=== PATIENT | female | born 1935 | race Caucasian/White ===

== ENCOUNTER → 2016-03-23 | Outpatient (REF) | payer MEDICARE, OTHER, MEDICAID ==
[~2016-03-23] MED LIST: /ESCI10TA OR; /PANT40TA PO; /QUET10TA PO; AMBI5TAB OR; ASPIRIN PO; CARD120T6 PO; EFFEXOR PO; FLON0.05; LIDO5DIS EX; METO10TA2 PO; MYCOSTATIN POWDER TOP; NEUR300C PO; PREM0.9T PO; REME45TA OR; SOTA120T PO; XANA1TAB2 PO; ZETI10TA PO; ZOCO80TA PO; amaryl PO; pradaxa PO
[2016-03-23 12:41] LABS: ANION GAP 9 MEQ/L (8-16); BLOOD UREA NITROGEN 16 MG/DL (7-18); CALCIUM LEVEL 9.5 MG/DL (8.8-10.2); CARBON DIOXIDE LEVEL 30 MEQ/L (21-32); CHLORIDE LEVEL 105 MEQ/L (98-107); CREATININE FOR GFR 0.74 MG/DL (0.55-1.02); GLOMERULAR FILTRATION RATE > 60.0 (>39); GLUCOSE, FASTING 151 MG/DL (83-110); POTASSIUM SERUM 3.9 MEQ/L (3.5-5.1); SODIUM LEVEL 144 MEQ/L (136-145)
== END ==
PROVIDERS: ATTEND Family Medicine
DX: E11.9 Type 2 diabetes mellitus without complications (principal); Z79.899 Other long term (current) drug therapy

== ENCOUNTER → 2016-04-01 | Outpatient (REF) ==
--- NOTE | 2016-04-01 13:09 | REP ---
CHEST, TWO AP VIEWS: COMPARISON: 10/08/2010. There are no focal infiltrates. There are no pleural effusions. The lung isidro are otherwise clear and unchanged. Cardiac size is upper normal. The pool, mediastinum, and bony thorax are unremarkable for positioning. IMPRESSION: There are no acute cardiopulmonary findings. Signed by Kevin Patel MD 04/01/2016 05:23 P
[2016-04-01 13:13] LABS: BASO % 0.2 % (0.0-1.0); EOS % 0.6 % (0.0-3.0); LARGE UNSTAINED CELL # 0.2 K/mm3 (0.0-0.4); LARGE UNSTAINED CELL % 1.5 % (0.0-4.0); LYMPH # 1.4 K/mm3 (1.5-4.5); LYMPH % 15.1 % (24.0-44.0); MEAN CORPUSCULAR HEMOGLOBIN 30.7 pg (27.0-33.0); MEAN CORPUSCULAR VOLUME 93.1 fl (80.0-96.0); MONO # 0.7 K/mm3 (0.0-0.8); MONO % 7.6 % (0.0-5.0); NEUTROPHILS % 74.9 % (36.0-66.0); PLATELET COUNT, AUTOMATED 222 k/mm3 (150-450); RED CELL DISTRIBUTION WIDTH 12.5 % (11.5-14.5); WHITE BLOOD COUNT 9.4 K/mm3 (4.0-10.0)
[2016-04-01 13:29] LABS: ANION GAP 7 MEQ/L (8-16); BLOOD UREA NITROGEN 12 MG/DL (7-18); CALCIUM LEVEL 9.2 MG/DL (8.8-10.2); CARBON DIOXIDE LEVEL 31 MEQ/L (21-32); CHLORIDE LEVEL 106 MEQ/L (98-107); CREATININE FOR GFR 0.66 MG/DL (0.55-1.02); GLOMERULAR FILTRATION RATE > 60.0 (>39); GLUCOSE, FASTING 127 MG/DL (83-110); POTASSIUM SERUM 3.7 MEQ/L (3.5-5.1); SODIUM LEVEL 144 MEQ/L (136-145)
== END ==
PROVIDERS: ATTEND Family Medicine
DX: R06.02 Shortness of breath (principal)

== ENCOUNTER → 2016-04-20 | Outpatient (REF) | payer MEDICARE, OTHER, MEDICAID ==
[2016-04-20 11:22] LABS: MEAN CORPUSCULAR HEMOGLOBIN 30.1 pg (27.0-33.0); MEAN CORPUSCULAR HGB CONC 32.3 g/dl (32.0-36.5); MEAN CORPUSCULAR VOLUME 93.2 fl (80.0-96.0); RED CELL DISTRIBUTION WIDTH 12.8 % (11.5-14.5)
[2016-04-20 12:05] LABS: ANION GAP 9 MEQ/L (8-16); BLOOD UREA NITROGEN 15 MG/DL (7-18); CALCIUM LEVEL 9.1 MG/DL (8.8-10.2); CARBON DIOXIDE LEVEL 30 MEQ/L (21-32); CHLORIDE LEVEL 105 MEQ/L (98-107); CHOLESTEROL LEVEL 153 MG/DL (<200); CREATININE FOR GFR 0.72 MG/DL (0.55-1.02); GLOMERULAR FILTRATION RATE > 60.0 (>39); GLUCOSE, FASTING 127 MG/DL (83-110); POTASSIUM SERUM 4.2 MEQ/L (3.5-5.1); SODIUM LEVEL 144 MEQ/L (136-145); TRIGLYCERIDES LEVEL 86 MG/DL (<150)
== END ==
PROVIDERS: ATTEND Family Medicine
DX: E11.9 Type 2 diabetes mellitus without complications (principal); Z79.899 Other long term (current) drug therapy

== ENCOUNTER → 2016-05-14 | Outpatient (CLI) | payer MEDICARE, OTHER, MEDICAID | LOC: M LAB 18:55 | PROVIDERS: ATTEND Family Medicine | DX: Z51.81 Encounter for therapeutic drug level monitoring (principal); Z79.899 Other long term (current) drug therapy; E11.9 Type 2 diabetes mellitus without complications; F41.9 Anxiety disorder, unspecified ==

== ENCOUNTER → 2016-05-25 | Outpatient (REF) | payer MEDICARE, OTHER, MEDICAID ==
[2016-05-25 14:03] LABS: ALT/SGPT 11 U/L (12-78); ANION GAP 8 MEQ/L (8-16); BLOOD UREA NITROGEN 13 MG/DL (7-18); CALCIUM LEVEL 9.1 MG/DL (8.8-10.2); CARBON DIOXIDE LEVEL 32 MEQ/L (21-32); CHLORIDE LEVEL 103 MEQ/L (98-107); CREATININE FOR GFR 0.67 MG/DL (0.55-1.02); GLOMERULAR FILTRATION RATE > 60.0 (>39); GLUCOSE, FASTING 142 MG/DL (83-110); POTASSIUM SERUM 4.2 MEQ/L (3.5-5.1); SODIUM LEVEL 143 MEQ/L (136-145)
== END ==
PROVIDERS: ATTEND Family Medicine
DX: E11.9 Type 2 diabetes mellitus without complications (principal); F41.9 Anxiety disorder, unspecified

== ENCOUNTER → 2016-06-22 | Outpatient (REF) | payer MEDICARE, MEDICAID, OTHER ==
[2016-06-22 10:46] LABS: ANION GAP 6 MEQ/L (8-16); BLOOD UREA NITROGEN 18 MG/DL (7-18); CALCIUM LEVEL 9.1 MG/DL (8.8-10.2); CARBON DIOXIDE LEVEL 32 MEQ/L (21-32); CHLORIDE LEVEL 107 MEQ/L (98-107); CREATININE FOR GFR 0.56 MG/DL (0.55-1.02); GLOMERULAR FILTRATION RATE > 60.0 (>39); GLUCOSE, FASTING 116 MG/DL (83-110); POTASSIUM SERUM 4.8 MEQ/L (3.5-5.1); SODIUM LEVEL 145 MEQ/L (136-145)
== END ==
PROVIDERS: ATTEND Family Medicine
DX: E11.9 Type 2 diabetes mellitus without complications (principal)

== ENCOUNTER → 2016-07-05 | Outpatient (CLI) | payer MEDICAID, MEDICARE ==
--- NOTE | 2016-07-05 14:00 | REPMRS ---
Patient History The patient states she has not had a clinical breast exam in over a year. Patient is postmenopausal. No known family history of cancer. Digital Mammo Screening Bilat: July 05, 2016 - Exam #: [id number] Bilateral CC and MLO view(s) were taken. Technologist: Teresa Hendrix, Technologist Prior study comparison: July 01, 2015, bilateral digital mammo screening bilat performed at [facility]. May 23, 2014, bilateral digital mammo screening bilat performed at [facility]. FINDINGS: There are scattered fibroglandular densities. There has been no change in the appearance of the mammogram from the prior studies. There is a mild amount of residual fibroglandular tissue which is fairly symmetric. There is no interval development of dominant mass, architectural distortion, or clustered microcalcification suggestive of malignancy. ASSESSMENT: BI-RADS/ACR category 1 mammogram. Negative. Recommendation Routine screening mammogram in 1 year (for women over age 40). This mammogram was interpreted with the aid of an FDA-approved computer-aided dectection system. Electronically Signed By: Kevin Cordon MD 07/05/16 [id number]
== END ==
LOC: M RAD 12:13
PROVIDERS: ATTEND Family Medicine
DX: Z12.31 Encounter for screening mammogram for malignant neoplasm of breast (principal); Z78.0 Asymptomatic menopausal state

== ENCOUNTER → 2016-07-20 | Outpatient (REF) | payer MEDICARE, MEDICAID, OTHER ==
[2016-07-20 10:15] LABS: MEAN CORPUSCULAR HEMOGLOBIN 30.2 pg (27.0-33.0); MEAN CORPUSCULAR HGB CONC 32.7 g/dl (32.0-36.5); MEAN CORPUSCULAR VOLUME 92.2 fl (80.0-96.0); WHITE BLOOD COUNT 5.2 K/mm3 (4.0-10.0)
[2016-07-20 10:48] LABS: ANION GAP 3 MEQ/L (8-16); BLOOD UREA NITROGEN 13 MG/DL (7-18); CALCIUM LEVEL 8.8 MG/DL (8.8-10.2); CARBON DIOXIDE LEVEL 35 MEQ/L (21-32); CHLORIDE LEVEL 106 MEQ/L (98-107); CHOLESTEROL LEVEL 122 MG/DL (<200); CREATININE FOR GFR 0.66 MG/DL (0.55-1.02); GLOMERULAR FILTRATION RATE > 60.0 (>39); GLUCOSE, FASTING 94 MG/DL (83-110); POTASSIUM SERUM 4.2 MEQ/L (3.5-5.1); SODIUM LEVEL 144 MEQ/L (136-145); TRIGLYCERIDES LEVEL 76 MG/DL (<150)
== END ==
PROVIDERS: ATTEND Family Medicine
DX: E11.9 Type 2 diabetes mellitus without complications (principal)

== ENCOUNTER → 2016-07-21 | Outpatient (CLI) | payer MEDICARE, MEDICAID, OTHER ==
--- NOTE | 2016-07-21 17:35 | REP ---
MRI BILATERAL HIPS: TECHNIQUE: Coronal T1, STIR through the pelvis, post arthrogram axial T1 fat sat, T2 fat sat, coronal T1 fat sat, T2 fat sat, sagittal T1 fat sat, axial oblique T1 fat sat bilateral hips. There is severe arthritic change at the right hip joint. There is severe chondromalacia with erosive deepening of acetabulum and erosive flattening of the femoral head. Subchondral marrow edema in seen on both sides of the joint with tiny subchondral cysts on both sides of the joint as well. Large spurs are seen. There is small joint effusion. Diffuse fraying is noted of the labrum. A small amount of the fluid along the greater trochanter is compatible with mild greater trochanteric tendinobursitis. No other soft-tissue signal abnormality is seen. Left hip demonstrates normal marrow signal with no bone marrow edema or occult fracture. There is no evidence of avascular necrosis. There is a tear of the anterior superior labrum. There is no paralabral cyst and there is no joint effusion. Surrounding soft tissue structures appear unremarkable with no abnormal signal. IMPRESSION: Severe degenerative joint disease right hip joint with erosive changes as discussed in detail above. Diffuse fraying of the labrum. Mild right greater trochanteric tendinobursitis. Left hip demonstrates a tear of the anterior superior aspect of the labrum. Signed by Kevin Cordon MD 07/22/2016 07:56 P
== END ==
LOC: M RAD 13:45
PROVIDERS: ATTEND Nurse Practitioner Adult Health
DX: M25.551 Pain in right hip (principal); M25.552 Pain in left hip; M46.1 Sacroiliitis, not elsewhere classified; M43.16 Spondylolisthesis, lumbar region; M47.816 Spondylosis without myelopathy or radiculopathy, lumbar region; M51.36 Other intervertebral disc degeneration, lumbar region; M51.27 Other intervertebral disc displacement, lumbosacral region; M48.06 Spinal stenosis, lumbar region

== ENCOUNTER → 2016-08-23 | Outpatient (REF) | payer MEDICARE, MEDICAID, OTHER ==
[2016-08-23 11:15] LABS: ALT/SGPT 19 U/L (12-78); ANION GAP 8 MEQ/L (8-16); BLOOD UREA NITROGEN 11 MG/DL (7-18); CALCIUM LEVEL 9.4 MG/DL (8.8-10.2); CARBON DIOXIDE LEVEL 33 MEQ/L (21-32); CHLORIDE LEVEL 104 MEQ/L (98-107); CREATININE FOR GFR 0.73 MG/DL (0.55-1.02); GLOMERULAR FILTRATION RATE > 60.0 (>39); GLUCOSE, FASTING 113 MG/DL (83-110); POTASSIUM SERUM 3.9 MEQ/L (3.5-5.1); SODIUM LEVEL 145 MEQ/L (136-145)
== END ==
PROVIDERS: ATTEND Family Medicine
DX: E11.9 Type 2 diabetes mellitus without complications (principal)

== ENCOUNTER → 2016-08-29 | Outpatient (REF) | payer MEDICARE, MEDICAID, OTHER | PROVIDERS: ATTEND Family Medicine | DX: R35.0 Frequency of micturition (principal) ==

== ENCOUNTER → 2016-09-21 | Outpatient (REF) | payer MEDICARE, MEDICAID, OTHER ==
[~2016-09-21] MED LIST changes: +ALPR0.25 PO; +BENPAD TOP; +BIMA01SOL OU; +DULC10SU2 PR; +FLEEENE4 PR; +GABA600T PO; +LASI20TA PO; +MELA1CAP PO; +MOM30SS PO; +MULT1TAB10 PO; +OMEP20CA3 PO; +POTA10TA16 PO; +PRAD150C PO; +RANI150T PO; +REFR0.5D8 OU; +REGL5TAB2 PO; +TYLE325T5 PO; +XANA0.5T PO
[2016-09-21 12:03] LABS: ANION GAP 6 MEQ/L (8-16); BLOOD UREA NITROGEN 16 MG/DL (7-18); CARBON DIOXIDE LEVEL 30 MEQ/L (21-32); CHLORIDE LEVEL 105 MEQ/L (98-107); CREATININE FOR GFR 0.66 MG/DL (0.55-1.02); GLOMERULAR FILTRATION RATE > 60.0 (>39); GLUCOSE, FASTING 128 MG/DL (83-110); POTASSIUM SERUM 3.9 MEQ/L (3.5-5.1); SODIUM LEVEL 141 MEQ/L (136-145)
== END ==
PROVIDERS: ATTEND Family Medicine
DX: E11.9 Type 2 diabetes mellitus without complications (principal)

== ENCOUNTER → 2016-10-19 | Outpatient (REF) | payer MEDICARE, MEDICAID, OTHER ==
[2016-10-19 10:23] LABS: MEAN CORPUSCULAR HEMOGLOBIN 30.2 pg (27.0-33.0); MEAN CORPUSCULAR HGB CONC 32.8 g/dl (32.0-36.5); MEAN CORPUSCULAR VOLUME 92.1 fl (80.0-96.0); RED CELL DISTRIBUTION WIDTH 13.1 % (11.5-14.5); WHITE BLOOD COUNT 6.2 K/mm3 (4.0-10.0)
[2016-10-19 12:08] LABS: ANION GAP 6 MEQ/L (8-16); BLOOD UREA NITROGEN 14 MG/DL (7-18); CALCIUM LEVEL 9.2 MG/DL (8.8-10.2); CARBON DIOXIDE LEVEL 31 MEQ/L (21-32); CHLORIDE LEVEL 105 MEQ/L (98-107); CHOLESTEROL LEVEL 180 MG/DL (<200); CREATININE FOR GFR 0.68 MG/DL (0.55-1.02); GLOMERULAR FILTRATION RATE > 60.0 (>39); GLUCOSE, FASTING 96 MG/DL (83-110); POTASSIUM SERUM 3.9 MEQ/L (3.5-5.1); SODIUM LEVEL 142 MEQ/L (136-145); TRIGLYCERIDES LEVEL 71 MG/DL (<150)
== END ==
PROVIDERS: ATTEND Family Medicine
DX: E11.9 Type 2 diabetes mellitus without complications (principal)

== ENCOUNTER → 2016-11-25 | Outpatient (REF) | payer MEDICARE, MEDICAID, OTHER | PROVIDERS: ATTEND Family Medicine | DX: N39.0 Urinary tract infection, site not specified (principal) ==

== ENCOUNTER → 2017-01-03 | Outpatient (REF) | payer MEDICARE, MEDICAID, OTHER ==
[2017-01-03 12:17] LABS: BASO % 0.4 % (0.0-1.0); EOS # 0.2 10^3/uL (0.0-0.50); EOS % 2.7 % (0.0-3.0); IMMATURE GRANULOCYTE % 0.4 % (0-0); LYMPH # 1.3 10^3/uL (1.5-4.5); LYMPH % 23.8 % (24.0-44.0); MEAN CORPUSCULAR HEMOGLOBIN 29.7 pg (27.0-33.0); MEAN CORPUSCULAR HGB CONC 31.5 g/dl (32.0-36.5); MEAN CORPUSCULAR VOLUME 94.2 fl (80.0-96.0); MONO # 0.5 10^3/uL (0.0-0.8); MONO % 9.8 % (0.0-5.0); NEUTROPHILS # 3.5 10^3/uL (1.8-7.7); NEUTROPHILS % 62.9 % (36.0-66.0); PLATELET COUNT, AUTOMATED 273 10^3/uL (150-450); RED CELL DISTRIBUTION WIDTH 13.2 % (11.5-14.5); WHITE BLOOD COUNT 5.5 10^3/uL (4.0-10.0)
--- NOTE | 2017-01-03 12:17 | REP ---
PA and lateral chest: Comparison 10/08/2010. There is chronic elevation of the right hemidiaphragm, likely eventration, unchanged. Lung isidro are clear. Cardiac size is upper normal, unchanged. The pool and mediastinum are unremarkable. There is bilateral shoulder osteoarthritis, unchanged. There is demineralization and multilevel degenerative disc disease throughout the thoracic spine, unchanged. Impression: Essentially negative PA and lateral chest except for bilateral shoulder osteoarthritis and degenerative disc disease throughout the thoracic spine. These findings are unchanged. Signed by Kevin Patel MD 01/03/2017 12:08 P
[2017-01-03 12:46] LABS: ALBUMIN 3.6 GM/DL (3.2-5.2); ALBUMIN/GLOBULIN RATIO 1.03 (1.00-1.93); ALKALINE PHOSPHATASE 123 U/L (45-117); ALT/SGPT 14 U/L (12-78); ANION GAP 7 MEQ/L (8-16); AST/SGOT 12 U/L (15-37); BILIRUBIN,TOTAL 0.6 MG/DL (0.2-1.0); BLOOD UREA NITROGEN 13 MG/DL (7-18); CALCIUM LEVEL 9.1 MG/DL (8.8-10.2); CARBON DIOXIDE LEVEL 31 MEQ/L (21-32); CHLORIDE LEVEL 103 MEQ/L (98-107); CREATININE FOR GFR 0.67 MG/DL (0.55-1.02); GLOMERULAR FILTRATION RATE > 60.0 (>39); GLUCOSE, FASTING 130 MG/DL (83-110); SODIUM LEVEL 141 MEQ/L (136-145); TOTAL PROTEIN 7.1 GM/DL (6.4-8.2)
== END ==
PROVIDERS: ATTEND Family Medicine
DX: Z01.818 Encounter for other preprocedural examination (principal); M19.011 Primary osteoarthritis, right shoulder; M19.012 Primary osteoarthritis, left shoulder; M51.34 Other intervertebral disc degeneration, thoracic region

== ENCOUNTER → 2017-01-04 | Outpatient (REF) | payer MEDICARE, MEDICAID, OTHER ==
[2017-01-04 10:38] LABS: INR 1.38
== END ==
PROVIDERS: ATTEND Family Medicine
DX: Z01.812 Encounter for preprocedural laboratory examination (principal); Z79.899 Other long term (current) drug therapy

== ENCOUNTER → 2017-01-10 | Outpatient (CLI) | payer MEDICARE, OTHER, MEDICAID ==
--- NOTE | 2017-01-10 19:04 | ECGEPIP ---
Stationary ECG Study [facility] Test Date: 2017-01-10 Pat Name: JEANNETTE ORTEGA Department: Room: - Gender: F Fur Tailor: EDUARDO : 1935 Requested By: Dwight Kruger Order Number: [id number] Reading MD: Blayne Torres Measurements Intervals [place] Rate: 52 P: [place]: 0 QRS: 27 QRSD: 94 T: 18 QT: 449 QTc: 420 Interpretive Statements ATRIAL FIBRILLATION WITH SLOW VENTRICULAR RESPONSE Comparison tracing not on file Electronically Signed On 01-10-2017 19:04:09 EDT by Blayne Torres
--- NOTE | 2017-01-19 21:49 | HPE ---
DATE OF ADMISSION: 01/23/2017 ATTENDING PHYSICIAN: Dr. Vasquez CHIEF COMPLAINT: Right hip pain and stiffness. HISTORY: Patient is a 81-year-old female with progressively worsening right hip pain and stiffness. She has failed to improve with conservative measures. She continues to have pain with weightbearing activities and activities of daily living. She has consented for an elective right total hip arthroplasty with Dr. Vasquez. Medical optimization pending with Dr. Aguirre and Dr. Gurrola. CHRONIC MEDICAL CONDITIONS: 1. Atrial fibrillation. 2. Hypertension. 3. History of stroke. 4. Anxiety. 5. Depression. 6. Insomnia. PAST SURGICAL HISTORY: 1. Carpal tunnel release. 2. Total hysterectomy. CURRENT MEDICATIONS: - aspirin 81 mg daily - Lasix 20 mg daily - melatonin 1 mg every evening - Pradaxa 150 mg twice daily - Lexapro 10 mg daily - Xanax 0.5 mg daily at 1600 and 0.25 mg at 0800 and 2000 - Glucagon emergency kit 1 mg intramuscular (IM) as needed - gabapentin 300 mg three times daily and 600 mg at 2100 - Seroquel 100 mg daily - mirtazapine 30 mg daily - acetaminophen 650 mg suppositories daily - omeprazole 20 mg two capsules once daily - Flonase 50 mcg two sprays daily - diltiazem 120 mg twice daily - milk of magnesia - Dulcolax 10 mg suppository - Zantac 150 mg daily - Refresh Tears - Lumigan drops one drop in each eye once daily - daily multivitamin - Reglan 5 mg every evening ALLERGIES: PENICILLIN, SULFA DRUGS. REVIEW OF SYSTEMS: Patient denies fevers, chills, nausea, vomiting, or diarrhea. She denies chest pain, shortness of breath, headaches, or cough. She denies any abdominal pain. She does continue to have right hip pain with weightbearing activities and activities of daily living. PHYSICAL EXAMINATION: Well-nourished, well-developed female in no apparent distress. VITAL SIGNS: Height 65 inches, weight 173 pounds, blood pressure 116/64, temperature 99, heart rate 76, respirations 16. HEAD: Normocephalic. HEART: Irregularly irregular rhythm. LUNGS: Clear to auscultation bilaterally. ABDOMEN: Soft. Nontender to palpation. Right hip revealed no gross abnormalities. Skin is intact. She does have significant decrease in motion but strength overall seems normal. Her calf is soft, nontender to palpation with no palpable cords noted. Distally she is neurovascularly intact. LABORATORY DATA: EKG: Atrial fibrillation with slow ventricular response. Chest x-ray: Essential negative posterior-anterior (PA) and lateral chest except for bilateral shoulder osteoarthritis and degenerative disc disease throughout the thoracic spine. Prothrombin time elevated at 17.3, INR 1.38. Glucose elevated at 130, BUN 13, creatinine 0.67, glomerular filtration rate greater than 60, sodium 141, potassium 4.0, chloride 103, carbon dioxide 31, anion gap decreased at 7, calcium 9.1. AST decreased at 12, ALT 13, alkaline phosphatase elevated at 123, total bilirubin 0.6, total protein 7.1, albumin 3.6, albumin/globulin ratio 1.03. WBC 5.5, hemoglobin 12.3, hematocrit 39, RBC 4.14, platelets 273, erythrocyte sedimentation rate 38. Urinalysis positive for 1+ leukocyte esterase and elevated WBC. There is also 2+ bacteria. Urine culture shows Escherichia (E) coli. Nasal and sinus culture reveal heavy growth of Staphylococcus aureus. IMPRESSION/PLAN: 1. Right hip degenerative arthritis with x-rays notable for end-stage degenerative changes. Patient has consented for an elective right total hip arthroplasty with Dr. Vasquez. Medical optimization from Dr. Aguirre and Dr. Gurrola pending and was not available for review today. 2. Urinary tract infection, treated appropriately by her primary primary care sales representative with Macrobid. 3. Nasal and sinus culture positive for heavy growth of Staphylococcus aureus, treated appropriately b her primary primary care sales representative with Bactroban and Hibiclens.
== END ==
LOC: M ADMPAT 10:20
PROVIDERS: ATTEND Orthopaedic Surgery
DX: Z01.818 Encounter for other preprocedural examination (principal); M16.11 Unilateral primary osteoarthritis, right hip; Z79.899 Other long term (current) drug therapy

== ENCOUNTER → 2017-01-24 | Outpatient (REF) | payer MEDICARE, OTHER, MEDICAID ==
[~2017-01-24] MED LIST changes: +COUM2.5T17 PO; +PERC5TAB12 PO
[2017-01-24 10:52] LABS: MEAN CORPUSCULAR HGB CONC 31.8 g/dl (32.0-36.5); MEAN CORPUSCULAR VOLUME 94.2 fl (80.0-96.0); PLATELET COUNT, AUTOMATED 227 10^3/uL (150-450); RED CELL DISTRIBUTION WIDTH 13.2 % (11.5-14.5); WHITE BLOOD COUNT 5.3 10^3/uL (4.0-10.0)
[2017-01-24 11:22] LABS: ANION GAP 4 MEQ/L (8-16); BLOOD UREA NITROGEN 15 MG/DL (7-18); CALCIUM LEVEL 9.4 MG/DL (8.8-10.2); CARBON DIOXIDE LEVEL 35 MEQ/L (21-32); CHLORIDE LEVEL 105 MEQ/L (98-107); CREATININE FOR GFR 0.64 MG/DL (0.55-1.02); GLOMERULAR FILTRATION RATE > 60.0 (>39); GLUCOSE, FASTING 113 MG/DL (83-110); POTASSIUM SERUM 4.4 MEQ/L (3.5-5.1); SODIUM LEVEL 144 MEQ/L (136-145)
== END ==
PROVIDERS: ATTEND Family Medicine
DX: E11.9 Type 2 diabetes mellitus without complications (principal)

== ENCOUNTER 2017-01-26 14:11 | Inpatient (IN) | payer MEDICARE, OTHER, MEDICAID ==
[~2017-01-26] VITALS: Ht 165.1 cm; Wt 78.5 kg
[~2017-01-26 14:11] MED LIST changes: -COUM2.5T17 PO; -PERC5TAB12 PO
[2017-01-26] MEDS ORDERED: VANCOMYCIN 1000 MG/20 ML VIAL (J3370) As Ordered ONE (14:24)
[2017-01-26] MEDS ORDERED: LR 1,000 ML IV SCH ×3 (14:30→19:45)
[2017-01-26] MEDS ORDERED: VANCOMYCIN HCL 1,000 MG, VIAL MATE ADAPTER 1 EACH in D5W 250 ML IV ONE (14:30)
[2017-01-26] MEDS ORDERED: MIDAZOLAM INJ 2 MG/2 ML VIAL (J2250) As Ordered ONE (17:26)
[2017-01-26] MEDS ORDERED: ePHEDrine SULFATE 25 MG/5 ML(5MG/ML) SYRINGE As Ordered ONE (17:26)
[2017-01-26] MEDS ORDERED: fentaNYL 100 MCG/2 ML INJECTION (J3010) As Ordered ONE (17:26)
[2017-01-26] MEDS ORDERED: PHENYLephrine HCL 500 MCG/5 ML (100MCG/ML) SYRINGE (J2370) As Ordered ONE (17:26)
[2017-01-26] MEDS ORDERED: PROPOFOL 200 MG/20 ML VIAL As Ordered ONE (17:27)
[2017-01-26] MEDS ORDERED: LIDOCAINE 2% INJ 100 MG/5 ML SDV (FOR ANES.) As Ordered ONE (17:27)
[2017-01-26] MEDS ORDERED: CLINDAMYCIN INJ 900MG/6ML VIAL As Ordered ONE (17:47)
[2017-01-26] MEDS ORDERED: EPINEPHrine INJ 1 MG/ML 1ML AMP As Ordered ONE ×2 (18:18→18:31)
[2017-01-26] MEDS ORDERED: TRANEXAMIC ACID 100 MG/ML 10ML VIAL As Ordered ONE (18:30)
[2017-01-26] MEDS ORDERED: MORPHINE 1MG/ML IN 0.9% NACL 100ML IV BAG As Ordered ONE (19:22)
[2017-01-26] MEDS ORDERED: NALOXONE INJ 0.4 MG/1 ML VIAL (J2310) IV PRN (19:45)
[2017-01-26] MEDS ORDERED: ONDANSETRON 4MG/2ML VIAL (J2405) IV PRN ×2 (19:45)
[2017-01-26] MEDS ORDERED: HYDROmorphone HCL 1 MG/ML SYRINGE (J1170) IV PRN (19:45)
[2017-01-26] MEDS ORDERED: fentaNYL 100 MCG/2 ML INJECTION (J3010) IV PRN (19:45)
[2017-01-26] MEDS ORDERED: ACETAMINOPHEN TAB 650MG DOSE (2X325MG) PO PRN (19:45)
[2017-01-26] MEDS ORDERED: NALBUPHINE HCL 10 MG/ML AMP (J2300) IV PRN (19:45)
[2017-01-26] MEDS ORDERED: MORPHINE 1MG/ML IN 0.9% NACL 100ML IV BAG IV PRN (19:45)
[2017-01-26] MEDS ORDERED: diphenhydrAMINE INJ 50MG/ML VIAL (J1200) IV PRN (19:45)
[2017-01-26] MEDS ORDERED: PERCOCET 5MG/325MG TAB PO PRN (19:45)
[2017-01-26] MEDS ORDERED: FLEET ENEMA PR PRN (19:45)
[2017-01-26] MEDS ORDERED: EPIDURAL/PCA KEYS XX PRN (19:45)
[2017-01-26 20:45] VITALS: BP 180/90
[2017-01-26] MEDS ORDERED: GABAPENTIN 300 MG CAP PO SCH (21:00)
[2017-01-26] MEDS ORDERED: LIDOCAINE 5% (LIDODERM) PATCH TD SCH (21:00)
[2017-01-26] MEDS ORDERED: raNITIdine SYRUP 150 MG/10 ML UDC PO SCH (21:00)
[2017-01-26] MEDS ORDERED: WARFARIN SOD 5 MG TAB PO ONE (21:00)
[2017-01-26] MEDS: **NOTE PATIENT COMMENT** MISC XX SCH (21:00)
[2017-01-26] MEDS: FLUTICASONE PROP 0.05% NASAL SPRAY 16 GM (FLONASE) SCH (21:00)
[2017-01-26 21:15] VITALS: BP 182/94
[2017-01-26] MEDS ORDERED: BISACODYL 10 MG SUPP PR PRN (21:15)
--- NOTE | 2017-01-26 21:39 | RO ---
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 PROCEDURE: Right total hip arthroplasty using a size 52 Gription sector cup with a size #5 cemented [place] standard offset stem with a +5 neck and a 32 mm ball, and a 32 mm neutral polyethylene liner. SURGEON: Dr. Dwight Vasquez BANQUET CAPTAIN: Dr. Brandon Garcia OTHER BANQUET CAPTAIN: Nina Garcia ANESTHESIA: Spinal. ESTIMATED BLOOD LOSS: 200 mL. COMPLICATIONS: None. SPECIMENS: Femoral head. DESCRIPTION OF PROCEDURE: Antibiotics were given intravenously preoperatively, then a successful spinal anesthetic was induced. A Srivastava catheter was then placed. Then, she was placed in a lateral decubitus position, right hip uppermost, Delfino hip positioner was utilized, down leg well padded, especially peroneal nerve, and the axillary roll was utilized. Right hip area was then carefully prepped and draped in the usual sterile fashion. Then, after appropriate time-out, a longitudinal incision was made for a direct lateral approach to the hip, then Bovie cautery was used to coagulate crossing vessels down to the tensor fascia. Very meticulous hemostasis was maintained throughout the surgery as she is a patient that does take Pradaxa on a regular basis. Tensor fascia was divided in line with the skin incision, and it was noteworthy when we palpated the greater trochanter, that there appeared to be a separate fragment in the soft tissues and the abductor muscles more posteriorly. On the x-ray, it is possible there may be an old avulsion injury or heterotopic bone in the abductors, but we did not have to dissect this out. We then made our standard split in the gluteus medius, the anterior one-third, posterior two-third junction, and carefully dissected down through the anterior hip capsule, carefully dissecting the tissues off the proximal femur as we externally rotated the hip and then dislocated anteriorly and placed the leg in the leg bag. Starter reamer was placed down the center of the piriformis fossa, followed by the canal finding reamer, then the lateralizing reamer. We then reamed up to a size #6 reamer. Femoral neck osteotomy performed using the template and then we broached up to a size #5. I did not want to push it more than that because of her relatively osteoporotic bone. And we elected, at this point, to do a cemented total hip replacement based on the bone quality and did not want to push the envelope in terms of possible fracture of the femur trying to put an uncemented stem in. At this point, then, we exposed the acetabulum, performed a labral excision 360 degrees. 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 Thus, I did not think we needed to do anything other than a standard acetabular cup. We began reaming with a 45 reamer and advanced up to a 51. The trial 52 fit nicely with good stability; thus I felt the 52 Gription cup would be best for her and thus this was implanted after copiously pulsatile lavage irrigating out the hip joint. We used the extramedullary alignment jig to set our version and abduction, then the central hole eliminator was placed. The real polyethylene was then placed as well and then we exposed the proximal femur and prepared for cementing. Mrs. Nina Garcia mixed the cement on the back table as Dr. Brandon Garcia and I prepared the femoral canal with a standard cement technique using a copious amount of pulsatile lavage irrigant solution. We placed the cement restrictor the appropriate distance, measured off the real stem. A size #4 was utilized. The centralizer was placed on the tip of the stem, and then I began irrigating again the femoral canal and then placed three epinephrine-soaked sponges down the canal with continuous suction irrigation and then pulled those sponges out, then dried with three dry sponges. Then, the cement was placed down the femoral canal, followed by the stem with the stem pusher and all excess cement was removed after we pressurized the cement with a cement director of rehabilitation. Excess cement was removed with the curettes and then we waited until the cement hardened. It is noteworthy prior to doing the cement technique, we did go back and do a trial reduction with a #5 broach. We used the standard offset stem and trialed first with a 1.5 neck, then the +5 neck and that fit the best. She had minimal telescoping with the +5 neck. She was very stable to flexion internal rotation and extension external rotation. There was no evidence of any instability, and the cup seemed to be in appropriate version and abduction. There was no impingement. That is how we elected to proceed with the #5 standard offset cemented stem prior to the cement technique. Once the cement had hardened, we dried the trunnion and placed the 32 head, +5 neck length onto the trunnion and then reduced the hip, and again she was very stable to flexion internal rotation and extension external rotation and had minimal soft tissue telescoping. We then placed tranexamic acid into the depths of the hip joint after copiously irrigating with the pulsatile lavage irrigant and then we began closing the gluteus minimus back anatomically with interrupted #1 PDS sutures. The gluteus minimus and the gluteus medius repaired back to the trochanter with several #1 interrupted PDS sutures, irrigating between layers, closed the tensor fascia with a running #1 Stratafix suture, irrigated between layers once again and closed the deep subdermal tissues with interrupted #2-0 PDS suture, skin was closed with oleksandr, covered by Adaptic dry sterile bulky dressing. She was then turned supine, then transferred to the recovery room in stable condition. There were no intraoperative complications. Dr. Garcia was critical to the success of this difficult operation and was helpful with decision making for how to manage the acetabular defect, helped with appropriate soft tissue retraction, helped to manipulate the leg in and out of the leg bag several times so I could perform the operation smoothly and efficiently. Mrs. Nina Garcia also helped with the soft tissue retraction as well as mixing the cement and helping to prepare the patient otherwise.
[2017-01-26 22:15] VITALS: BP 145/95
[2017-01-26] MEDS: OMEPRAZOLE 20 MG CAP PO SCH (22:39)
[2017-01-26] MEDS: GABAPENTIN 300 MG CAP PO SCH (22:39)
[2017-01-26] MEDS: METOCLOPRAMIDE 5 MG TAB PO SCH (22:40)
[2017-01-26] MEDS: ALPRAZolam 0.25 MG TAB PO SCH (22:51)
[2017-01-26 23:15] VITALS: BP 137/86
[2017-01-26] MEDS ORDERED: ALPRAZolam 0.25 MG TAB PO ONE (23:15)
[2017-01-27] VITALS (7 sets, daily range): BP systolic 99–136; BP diastolic 48–89
[2017-01-27] MEDS ORDERED: VANCOMYCIN HCL 1,000 MG, VIAL MATE ADAPTER 1 EACH in D5W 250 ML IV ONE (05:00)
[2017-01-27 06:34] LABS: MEAN CORPUSCULAR HEMOGLOBIN 30.2 pg (27.0-33.0); MEAN CORPUSCULAR HGB CONC 32.3 g/dl (32.0-36.5); MEAN CORPUSCULAR VOLUME 93.5 fl (80.0-96.0); PLATELET COUNT, AUTOMATED 205 10^3/uL (150-450); RED CELL DISTRIBUTION WIDTH 13.1 % (11.5-14.5); WHITE BLOOD COUNT 10.7 10^3/uL (4.0-10.0)
[2017-01-27] MEDS ORDERED: ONDANSETRON 4 MG TAB (S0181) PO PRN (06:45)
[2017-01-27] MEDS ORDERED: PERCOCET 5MG/325MG TAB PO PRN (06:45)
[2017-01-27 07:03] LABS: ANION GAP 6 MEQ/L (8-16); BLOOD UREA NITROGEN 11 MG/DL (7-18); CALCIUM LEVEL 8.8 MG/DL (8.8-10.2); CARBON DIOXIDE LEVEL 31 MEQ/L (21-32); CHLORIDE LEVEL 104 MEQ/L (98-107); CREATININE FOR GFR 0.72 MG/DL (0.55-1.02); GLOMERULAR FILTRATION RATE > 60.0 (>39); GLUCOSE, FASTING 185 MG/DL (83-110); POTASSIUM SERUM 3.8 MEQ/L (3.5-5.1); SODIUM LEVEL 141 MEQ/L (136-145)
[2017-01-27] MEDS: FLUTICASONE PROP 0.05% NASAL SPRAY 16 GM (FLONASE) SCH ×2 (07:54→20:23)
[2017-01-27] MEDS: MIRALAX *UNIT DOSE* 17GM PACKET PO SCH (07:54)
[2017-01-27] MEDS: SENOKOT S TAB PO SCH ×2 (07:55→20:20)
[2017-01-27] MEDS: ESCITALOPRAM OXALATE 10 MG TAB (LEXAPRO) PO SCH (07:55)
[2017-01-27] MEDS: MOM 30ML SUSPENSION UDC PO SCH ×2 (07:55→09:06)
[2017-01-27] MEDS: ALPRAZolam 0.25 MG TAB PO SCH ×2 (07:55→19:43)
[2017-01-27] MEDS: QUEtiapine FUMARATE 100 MG TAB PO SCH (07:55)
[2017-01-27] MEDS: MULTIVITAMINS/MINERALS THERAP 1 TAB PO SCH (07:56)
[2017-01-27] MEDS: GABAPENTIN 300 MG CAP PO SCH ×4 (07:56→20:20)
[2017-01-27] MEDS: diltiaZEM **CD** 180 MG CAP PO SCH ×2 (07:56→20:15)
[2017-01-27 08:04] LABS: INR 1.23
[2017-01-27] MEDS ORDERED: COUM2.5T17 PO (08:29)
[2017-01-27] MEDS ORDERED: PERC5TAB12 PO (08:29)
--- NOTE | 2017-01-27 08:31 | IPNPDOC ---
Subjective Date Seen The patient was seen on 01/27/17. Subjective Chief Complaint/HPI The patient is a 81-year-old female admitted with a reason for visit of Arthritis Right Hip. Events since last encounter Pt has been anxious and yelling out most of the night. She wants her Xanax. When I went in to see her she settled down, her right rate slowed right down from 130s to 100. Nurses were then able to get an EKG with a rate of 87 c/w one done earlier in the morning at 147. She rec an extra dose of Diltiazem 60 mg overnight, and is schedule for 180 mg BID today. Other than her rate control Ortho feels she is ready to return to the [place]. General: Denies: Fatigue Constitutional: Denies: Chills, Fever Pulmonary: Denies: Dyspnea, Cough Cardiovascular: Denies: Chest Pain, Palpitations Gastrointestinal: Denies: Nausea, Vomiting, Diarrhea Psych: Reports: Anxiety (She tells me that she is anxious all the time, but it has been worse for hours now, that is why she has been yelling, she tells me her pain is controlled, she just wants her xanax. ) Objective Physical Examination General Exam: Positive: Alert, Cooperative, Mild Distress (yelling when I entered the room and while working in the halls, as soon as I entered she settled, she pleaded with me not to leave and be left alone) ENT Exam: Positive: Mucous membr. moist/pink Neck Exam: Positive: Supple Chest Exam: Positive: Clear to auscultation, Normal air movement Heart Exam: Positive: Tachycardic (100 BPM on ausc, irreg, irreg), Irregular Rhythm Extremity Exam: Negative: Edema Neuro Exam: Positive: Normal Speech Psych Exam: Positive: Mental status NL, Anxiety Assessment /Plan Problems (1) S/P total hip arthroplasty Status: Acute Response to Treatment: Stable Discussed With: Industrial Aerial Installer, Patient Problem Specific Plan: Monitor Clinically Problem Text: From Ortho perspective she is ready to return to [facility]. She might do better there in terms of control of her anxiety. Her anticoafulation will be with Coumadin for 1 month, then transition back to Pradaxa for A fib. Bowel care, PT per Ortho. (2) A-fib Status: Chronic Response to Treatment: Stable Discussed With: Nurse, Industrial Aerial Installer, Patient Problem Specific Plan: Monitor Clinically Problem Text: She has been in the 120s through the night, controlled prior to surgery. She is very anxious, nursing reports and pt agrees that she has been yelling out most of the night. She rec Diltiazem 60 mg at 1 am, her rate on initial EKG was 147, once we were able to get her to settle down this morning, a repeat was done with a rate of 87. CIP/Trop Neg x 1. Will cont with Diltiazem 180 mg BID, Coumadin, if her rate remains stable, can plan for D/C later today. (3) Anxiety Status: Chronic Response to Treatment: Uncontrolled Discussed With: Nurse, Patient Problem Specific Plan: Monitor Clinically, Repeat Labs Problem Text: She has her home doses of Xanax ordered she is only take 0.25 mg twice a day with 0.5 mg given as a third dose. She has been getting this routinely. The nurses will cont to work with her to get her to settle down. I do think that she prob would do better at [facility] where she is more comfortable, but we do have to make sure her rate is controlled so we dont have to work about pulm edema or cardiac compromise. Plan/VTE VTE Prophylaxis Ordered?: Yes VS, I&O, 24H, Fishbone Vital Signs/I&O Vital Signs Date Time Temp Pulse Resp B/P (MAP) Pulse Ox O2 Delivery O2 Flow Rate FiO2 01/27/17 07:56 127 136/89 01/27/17 06:00 99.7 16 95 NIPPV (BIPAP/CPAP) 01/26/17 19:15 10 Laboratory Data 24H LABS Laboratory Tests 2 01/27/17 06:24: Nucleated Red Blood Cells % (auto) 0.0, Prothrombin Time 15.7H, Prothromb Time International Ratio 1.23, Anion Gap 6L, Glomerular Filtration Rate > 60.0, Blood Urea Nitrogen 11, Creatinine 0.72, Sodium Level 141, Potassium Level 3.8, Chloride Level 104, Carbon Dioxide Level 31, Calcium Level 8.8, Total Creatine Kinase 347H, Creatine Kinase MB 2.5, Creatine Kinase MB Relative Index 0.72, Troponin I 0.02 CBC/BMP Laboratory Tests 01/27/17 06:24 Red Blood Count 3.54 L, Mean Corpuscular Volume 93.5, Mean Corpuscular Hemoglobin 30.2, Mean Corpuscular Hemoglobin Concent 32.3, Red Cell Distribution Width 13.1, Calcium Level 8.8, Total Creatine Kinase 347 H LAUREN MCBRIDE PA-C Jan 27, 2017 08:31
[2017-01-27] MEDS: LIDOCAINE 5% (LIDODERM) PATCH TD SCH (10:02)
[2017-01-27] MEDS: PERCOCET 5MG/325MG TAB PO PRN ×2 (10:02→14:40)
--- NOTE | 2017-01-27 10:04 | REP ---
RIGHT HIP: Two views of the right hip are performed. There is a total hip prosthesis which appears to be good position. The structures are well aligned. Metallic skin oleksandr are seen laterally. Signed by Kevin Cordon MD 01/27/2017 03:46 P
--- NOTE | 2017-01-27 14:27 | ECGEPIP ---
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 Heart rate is now much faster and there is ST-T abnormality Electronically Signed On 01-27-2017 14:27:14 EST by Danilo Ramirez
--- NOTE | 2017-01-27 14:43 | ECGEPIP ---
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
[2017-01-27] MEDS ORDERED: ALPRAZolam 0.5 MG TAB PO SCH (16:00)
[2017-01-27] MEDS ORDERED: WARFARIN SOD 5 MG TAB PO ONE (17:00)
[2017-01-27] MEDS: OMEPRAZOLE 20 MG CAP PO SCH (20:22)
[2017-01-27] MEDS: METOCLOPRAMIDE 5 MG TAB PO SCH (20:23)
[2017-01-27] MEDS: **NOTE PATIENT COMMENT** MISC XX SCH (20:34)
[2017-01-27] MEDS ORDERED: LUMIGAN (PATIENT'S OWN MED) OU SCH (21:00)
[2017-01-27] MEDS ORDERED: raNITIdine SYRUP 150 MG/10 ML UDC PO SCH (21:00)
[2017-01-27] MEDS ORDERED: REFRESH TEARS OU SCH (21:00)
[2017-01-28 06:00] VITALS: BP 114/64
[2017-01-28 06:12] LABS: MEAN CORPUSCULAR HEMOGLOBIN 29.9 pg (27.0-33.0); MEAN CORPUSCULAR HGB CONC 32.4 g/dl (32.0-36.5); MEAN CORPUSCULAR VOLUME 92.2 fl (80.0-96.0); PLATELET COUNT, AUTOMATED 209 10^3/uL (150-450); RED CELL DISTRIBUTION WIDTH 13.4 % (11.5-14.5); WHITE BLOOD COUNT 12.7 10^3/uL (4.0-10.0)
[2017-01-28 06:24] LABS: INR 1.87
[2017-01-28 06:40] LABS: ANION GAP 7 MEQ/L (8-16); BLOOD UREA NITROGEN 16 MG/DL (7-18); CALCIUM LEVEL 8.7 MG/DL (8.8-10.2); CARBON DIOXIDE LEVEL 31 MEQ/L (21-32); CHLORIDE LEVEL 101 MEQ/L (98-107); CREATININE FOR GFR 0.82 MG/DL (0.55-1.02); GLOMERULAR FILTRATION RATE > 60.0 (>39); GLUCOSE, FASTING 149 MG/DL (83-110); POTASSIUM SERUM 3.9 MEQ/L (3.5-5.1); SODIUM LEVEL 139 MEQ/L (136-145)
[2017-01-28] MEDS: MOM 30ML SUSPENSION UDC PO SCH (09:00)
[2017-01-28] MEDS: FLUTICASONE PROP 0.05% NASAL SPRAY 16 GM (FLONASE) SCH (09:00)
[2017-01-28] MEDS: QUEtiapine FUMARATE 100 MG TAB PO SCH (09:00)
[2017-01-28] MEDS: MIRALAX *UNIT DOSE* 17GM PACKET PO SCH (09:00)
[2017-01-28] MEDS: ESCITALOPRAM OXALATE 10 MG TAB (LEXAPRO) PO SCH (09:10)
[2017-01-28] MEDS: SENOKOT S TAB PO SCH (09:11)
[2017-01-28 09:13] VITALS: BP 114/64
[2017-01-28] MEDS: GABAPENTIN 300 MG CAP PO SCH (09:13)
[2017-01-28] MEDS: diltiaZEM **CD** 180 MG CAP PO SCH (09:13)
[2017-01-28] MEDS: PERCOCET 5MG/325MG TAB PO PRN (09:15)
[2017-01-28] MEDS: LIDOCAINE 5% (LIDODERM) PATCH TD SCH (09:16)
[2017-01-28] MEDS: ALPRAZolam 0.25 MG TAB PO SCH (09:18)
[2017-01-28] MEDS: MULTIVITAMINS/MINERALS THERAP 1 TAB PO SCH (09:19)
--- NOTE | 2017-01-30 18:42 | DSES ---
DATE OF ADMISSION: 01/26/2017 DATE OF DISCHARGE: 01/28/2017 ADMISSION DIAGNOSIS: Osteoarthritis, right hip. OTHER DIAGNOSES: 1. Atrial fibrillation. 2. Anxiety. DISCHARGE DIAGNOSIS: Osteoarthritis, right hip, status post right total hip arthroplasty. OPERATION PERFORMED: Right total hip arthroplasty. HISTORY: This a pleasant 81-year-old female patient with progressively worsening right hip pain and stiffness. She failed to improve with conservative management. She was admitted for elective hip replacement on the right side. HOSPITAL COURSE: The patient was admitted on the day of surgery and underwent a right total hip arthroplasty which was uneventful. During her hospital course, she did have some difficulty with physical therapy and it was noted that she will need further therapy, so she was sent to the [facility] for further rehabilitation and care. On the day of discharge, she was weightbearing as tolerated on the right lower extremity. She will use adjusted-dose Coumadin and thromboembolic-deterrent (BELKIS) stockings for 30 days postoperative for deep vein thrombosis (DVT) prophylaxis. She will resume her preoperative medications and diet. She was given instructions to include but not limited to wound monitoring activity limitations. She will use oral pain medications for pain control. She will followup in our office in 10-14 days for surgical followup. Please refer to the medical record further details.
== END 2017-01-28 12:35 | DRG 470 ==
LOC: M OR 14:11 → M MS5PR 19:59
PROVIDERS: ADMIT Orthopaedic Surgery; ATTEND Orthopaedic Surgery
PROC: 0SR902A Replacement of Right Hip Joint with Metal on Polyethylene Synthetic Substitute, Uncemented, Open Approach (ICD-10-PCS; principal; 2017-01-26 16:00)
DX: M16.11 Unilateral primary osteoarthritis, right hip (principal); I48.91 Unspecified atrial fibrillation; F41.9 Anxiety disorder, unspecified

== ENCOUNTER → 2017-04-25 | Outpatient (REF) | payer MEDICARE, OTHER, MEDICAID ==
[2017-04-25 11:22] LABS: HEMATOCRIT 36.9 % (36.0-47.0); HEMOGLOBIN 11.3 g/dl (12.0-16.0); MEAN CORPUSCULAR HEMOGLOBIN 26.7 pg (27.0-33.0); MEAN CORPUSCULAR HGB CONC 30.6 g/dl (32.0-36.5); MEAN CORPUSCULAR VOLUME 87.2 fl (80.0-96.0); PLATELET COUNT, AUTOMATED 293 10^3/uL (150-450); RED BLOOD COUNT 4.23 10^6/uL (4.00-5.40); RED CELL DISTRIBUTION WIDTH 14.8 % (11.5-14.5); WHITE BLOOD COUNT 6.3 10^3/uL (4.0-10.0)
[2017-04-25 11:38] LABS: ESTIMATED AVERAGE GLUCOSE 123 MG/DL (60-110); HEMOGLOBIN A1c 5.9 %
[2017-04-25 11:54] LABS: ANION GAP 7 MEQ/L (8-16); BLOOD UREA NITROGEN 16 MG/DL (7-18); CALCIUM LEVEL 9.4 MG/DL (8.8-10.2); CARBON DIOXIDE LEVEL 32 MEQ/L (21-32); CHLORIDE LEVEL 103 MEQ/L (98-107); CREATININE FOR GFR 0.67 MG/DL (0.55-1.30); GLOMERULAR FILTRATION RATE > 60.0 (>32); GLUCOSE, FASTING 120 MG/DL (70-100); SODIUM LEVEL 142 MEQ/L (136-145)
== END ==
DX: E11.9 Type 2 diabetes mellitus without complications (principal)
CPT/HCPCS: 83036

== ENCOUNTER 2017-05-08 12:00 | Outpatient (REF) ==
[2017-05-09 10:57] LABS: ANION GAP 9 MEQ/L (8-16); BLOOD UREA NITROGEN 15 MG/DL (7-18); CALCIUM LEVEL 9.1 MG/DL (8.8-10.2); CARBON DIOXIDE LEVEL 30 MEQ/L (21-32); CHLORIDE LEVEL 104 MEQ/L (98-107); CREATININE FOR GFR 0.71 MG/DL (0.55-1.30); GLOMERULAR FILTRATION RATE > 60.0 (>32); GLUCOSE, FASTING 114 MG/DL (70-100); POTASSIUM SERUM 4.1 MEQ/L (3.5-5.1); SODIUM LEVEL 143 MEQ/L (136-145)
== END 2017-05-09 ==
DX: I50.9 Heart failure, unspecified (principal)

== ENCOUNTER → 2017-05-16 | Outpatient (REF) | payer MEDICARE, OTHER, MEDICAID ==
[2017-05-16 11:08] LABS: ANION GAP 8 MEQ/L (8-16); BLOOD UREA NITROGEN 18 MG/DL (7-18); CALCIUM LEVEL 9.2 MG/DL (8.8-10.2); CARBON DIOXIDE LEVEL 30 MEQ/L (21-32); CHLORIDE LEVEL 105 MEQ/L (98-107); CREATININE FOR GFR 0.77 MG/DL (0.55-1.30); GLOMERULAR FILTRATION RATE > 60.0 (>32); GLUCOSE, FASTING 116 MG/DL (70-100); SODIUM LEVEL 143 MEQ/L (136-145)
== END ==
DX: I50.9 Heart failure, unspecified (principal)
CPT/HCPCS: 80048

== ENCOUNTER → 2017-05-24 | Outpatient (REF) | payer MEDICARE, OTHER, MEDICAID ==
[2017-05-24 12:52] LABS: ANION GAP 6 MEQ/L (8-16); BLOOD UREA NITROGEN 15 MG/DL (7-18); CALCIUM LEVEL 9.4 MG/DL (8.8-10.2); CARBON DIOXIDE LEVEL 33 MEQ/L (21-32); CHLORIDE LEVEL 104 MEQ/L (98-107); CREATININE FOR GFR 0.83 MG/DL (0.55-1.30); GLOMERULAR FILTRATION RATE > 60.0 (>32); GLUCOSE, FASTING 123 MG/DL (70-100); POTASSIUM SERUM 3.9 MEQ/L (3.5-5.1); SODIUM LEVEL 143 MEQ/L (136-145)
== END ==
DX: I50.9 Heart failure, unspecified (principal)
CPT/HCPCS: 80048

== ENCOUNTER → 2017-10-27 | Outpatient (REF) | payer MEDICARE, OTHER, MEDICAID ==
[2017-10-27 10:28] LABS: HEMATOCRIT 35.6 % (36.0-47.0); HEMOGLOBIN 11.4 g/dl (12.0-15.5); MEAN CORPUSCULAR HEMOGLOBIN 29.1 pg (27.0-33.0); MEAN CORPUSCULAR VOLUME 90.8 fl (80.0-96.0); PLATELET COUNT, AUTOMATED 241 10^3/uL (150-450); RED BLOOD COUNT 3.92 10^6/uL (4.00-5.40); RED CELL DISTRIBUTION WIDTH 13.7 % (11.5-14.5); WHITE BLOOD COUNT 5.1 10^3/uL (4.0-10.0)
[2017-10-27 10:44] LABS: ESTIMATED AVERAGE GLUCOSE 128 MG/DL (60-110); HEMOGLOBIN A1c 6.1 %
[2017-10-27 10:47] LABS: ALT/SGPT 15 U/L (12-78); ANION GAP 8 MEQ/L (8-16); BLOOD UREA NITROGEN 17 MG/DL (7-18); CALCIUM LEVEL 8.7 MG/DL (8.8-10.2); CARBON DIOXIDE LEVEL 29 MEQ/L (21-32); CHLORIDE LEVEL 108 MEQ/L (98-107); CHOLESTEROL LEVEL 164 MG/DL (<200); CREATININE FOR GFR 0.69 MG/DL (0.55-1.30); GLOMERULAR FILTRATION RATE > 60.0 (>32); GLUCOSE, FASTING 93 MG/DL (70-100); HDL CHOLESTEROL 50 MG/DL (>40); LDL CHOLESTEROL 99.8 MG/DL (<100); NON-HDL-C 114 MG/DL; POTASSIUM SERUM 3.9 MEQ/L (3.5-5.1); SODIUM LEVEL 145 MEQ/L (136-145); TRIGLYCERIDES LEVEL 71 MG/DL (<150)
== END ==
DX: E11.9 Type 2 diabetes mellitus without complications (principal)
CPT/HCPCS: 84460

== ENCOUNTER → 2018-01-04 | Outpatient (REF) | payer MEDICARE, OTHER, MEDICAID ==
[2018-01-04 14:35] LABS: APPEARANCE, URINE HAZY (CLEAR); BACTERIA, URINE AUTO NEGATIVE (NEGATIVE); BILIRUBIN, URINE AUTO NEGATIVE (NEGATIVE); BLOOD, URINE BLOOD NEGATIVE (NEGATIVE); COLOR, URINE YELLOW (YELLOW); GLUCOSE, URINE (UA) AUTO NEGATIVE (NEGATIVE); KETONE, URINE AUTO NEGATIVE (NEGATIVE); LEUKOCYTE ESTERASE, URINE AUTO 2+ (NEGATIVE); MUCUS, URINE SMALL (NEGATIVE); NITRITE, URINE AUTO NEGATIVE (NEGATIVE); PROTEIN, URINE AUTO NEGATIVE (NEGATIVE); RBC, URINE AUTO 2 /HPF (0-3); SQUAMOUS EPITHELIAL CELL UR AU 0 /HPF (0-6); TRANSITIONAL EPITHELIAL AUTO <1 /HPF; UROBILINOGEN, URINE AUTO 0.2 mg/dL (0.0-2.0); WBC, URINE AUTO 24 /HPF (0-3); YEAST LIKE CELL URINE AUTO SMALL
== END ==
DX: R30.0 Dysuria (principal)
CPT/HCPCS: 81001

== ENCOUNTER → 2018-01-23 | Outpatient (REF) | payer MEDICARE, OTHER, MEDICAID ==
[2018-01-23 11:59] LABS: HEMATOCRIT 41.9 % (36.0-47.0); HEMOGLOBIN 13.2 g/dl (12.0-15.5); MEAN CORPUSCULAR HEMOGLOBIN 28.9 pg (27.0-33.0); MEAN CORPUSCULAR HGB CONC 31.5 g/dl (32.0-36.5); MEAN CORPUSCULAR VOLUME 91.9 fl (80.0-96.0); PLATELET COUNT, AUTOMATED 284 10^3/uL (150-450); RED BLOOD COUNT 4.56 10^6/uL (4.00-5.40); RED CELL DISTRIBUTION WIDTH 13.9 % (11.5-14.5); WHITE BLOOD COUNT 7.6 10^3/uL (4.0-10.0)
[2018-01-23 12:20] LABS: ANION GAP 7 MEQ/L (8-16); BLOOD UREA NITROGEN 15 MG/DL (7-18); CALCIUM LEVEL 9.3 MG/DL (8.8-10.2); CARBON DIOXIDE LEVEL 31 MEQ/L (21-32); CHLORIDE LEVEL 103 MEQ/L (98-107); CREATININE FOR GFR 0.78 MG/DL (0.55-1.30); GLOMERULAR FILTRATION RATE > 60.0 (>32); GLUCOSE, FASTING 121 MG/DL (70-100); SODIUM LEVEL 141 MEQ/L (136-145)
== END ==
DX: E11.9 Type 2 diabetes mellitus without complications (principal)
CPT/HCPCS: 80048

== ENCOUNTER → 2018-04-25 | Outpatient (REF) | payer MEDICARE, OTHER, MEDICAID ==
[~2018-04-25] MED LIST changes: +COUM2.5T17 PO; -GABA600T PO; +GABA600T4 PO; -LASI20TA PO; +LASI20TA3 PO; +PERC5TAB12 PO
[2018-04-25 10:52] LABS: HEMATOCRIT 37.8 % (36.0-47.0); HEMOGLOBIN 11.8 g/dl (12.0-15.5); MEAN CORPUSCULAR HEMOGLOBIN 28.4 pg (27.0-33.0); MEAN CORPUSCULAR HGB CONC 31.2 g/dl (32.0-36.5); MEAN CORPUSCULAR VOLUME 91.1 fl (80.0-96.0); PLATELET COUNT, AUTOMATED 265 10^3/uL (150-450); RED BLOOD COUNT 4.15 10^6/uL (4.00-5.40); WHITE BLOOD COUNT 5.8 10^3/uL (4.0-10.0)
[2018-04-25 11:10] LABS: ALT/SGPT 14 U/L (12-78); BLOOD UREA NITROGEN 14 MG/DL (7-18); CARBON DIOXIDE LEVEL 30 MEQ/L (21-32); CHLORIDE LEVEL 104 MEQ/L (98-107); CREATININE FOR GFR 0.75 MG/DL (0.55-1.30); GLOMERULAR FILTRATION RATE > 60.0 (>32); GLUCOSE, FASTING 152 MG/DL (70-100); POTASSIUM SERUM 3.8 MEQ/L (3.5-5.1); SODIUM LEVEL 143 MEQ/L (136-145)
[2018-04-25 11:25] LABS: HEMOGLOBIN A1c 6.5 %
== END ==
PROVIDERS: ATTEND Family Medicine
DX: E11.9 Type 2 diabetes mellitus without complications (principal); Z79.899 Other long term (current) drug therapy

== ENCOUNTER → 2018-06-04 | Outpatient (REF) | payer MEDICARE, OTHER, MEDICAID ==
[~2018-06-04] MED LIST changes: -/ESCI10TA OR; -/PANT40TA PO; -/QUET10TA PO; +LEXA1TAB OR; -PRAD150C PO; +PRAD150C6 PO; +PROT1TAB2 PO; +SERO1TAB PO
[2018-06-04 18:25] LABS: APPEARANCE, URINE CLEAR (CLEAR); BACTERIA, URINE AUTO NEGATIVE (NEGATIVE); BILIRUBIN, URINE AUTO NEGATIVE (NEGATIVE); BLOOD, URINE BLOOD NEGATIVE (NEGATIVE); COLOR, URINE YELLOW (YELLOW); GLUCOSE, URINE (UA) AUTO NEGATIVE (NEGATIVE); KETONE, URINE AUTO NEGATIVE (NEGATIVE); LEUKOCYTE ESTERASE, URINE AUTO TRACE (NEGATIVE); NITRITE, URINE AUTO NEGATIVE (NEGATIVE); PROTEIN, URINE AUTO NEGATIVE (NEGATIVE); RBC, URINE AUTO 1 /HPF (0-3); SPECIFIC GRAVITY URINE AUTO 1.014 (1.002-1.035); SQUAMOUS EPITHELIAL CELL UR AU 0 /HPF (0-6); TRANSITIONAL EPITHELIAL AUTO <1 /HPF; UROBILINOGEN, URINE AUTO 0.2 mg/dL (0.0-2.0); WBC, URINE AUTO 7 /HPF (0-3)
== END ==
PROVIDERS: ATTEND Family Medicine
DX: F41.9 Anxiety disorder, unspecified (principal)

== ENCOUNTER → 2018-07-24 | Outpatient (REF) | payer MEDICARE, OTHER, MEDICAID ==
[2018-07-24 09:23] LABS: HEMATOCRIT 41.2 % (36.0-47.0); HEMOGLOBIN 12.9 g/dl (12.0-15.5); MEAN CORPUSCULAR HEMOGLOBIN 28.7 pg (27.0-33.0); MEAN CORPUSCULAR HGB CONC 31.3 g/dl (32.0-36.5); MEAN CORPUSCULAR VOLUME 91.8 fl (80.0-96.0); PLATELET COUNT, AUTOMATED 280 10^3/uL (150-450); RED BLOOD COUNT 4.49 10^6/uL (4.00-5.40); WHITE BLOOD COUNT 10.9 10^3/uL (4.0-10.0)
[2018-07-24 09:52] LABS: BLOOD UREA NITROGEN 15 MG/DL (7-18); CALCIUM LEVEL 9.4 MG/DL (8.8-10.2); CARBON DIOXIDE LEVEL 30 MEQ/L (21-32); CHLORIDE LEVEL 104 MEQ/L (98-107); CREATININE FOR GFR 0.82 MG/DL (0.55-1.30); GLOMERULAR FILTRATION RATE > 60.0 (>32); GLUCOSE, FASTING 106 MG/DL (70-100); POTASSIUM SERUM 4.2 MEQ/L (3.5-5.1); SODIUM LEVEL 142 MEQ/L (136-145)
== END ==
PROVIDERS: ATTEND Family Medicine
DX: E11.9 Type 2 diabetes mellitus without complications (principal)

== ENCOUNTER → 2018-08-30 | Outpatient (REF) | payer MEDICARE, OTHER, MEDICAID ==
[2018-08-30 10:06] LABS: HEMOGLOBIN 13.1 g/dl (12.0-15.5); MEAN CORPUSCULAR VOLUME 90.9 fl (80.0-96.0); PLATELET COUNT, AUTOMATED 296 10^3/uL (150-450); RED BLOOD COUNT 4.51 10^6/uL (4.00-5.40); WHITE BLOOD COUNT 14.9 10^3/uL (4.0-10.0)
[2018-08-30 10:34] LABS: ALBUMIN 3.5 GM/DL (3.2-5.2); ALT/SGPT 12 U/L (12-78); BILIRUBIN,TOTAL 0.9 MG/DL (0.2-1.0); BLOOD UREA NITROGEN 13 MG/DL (7-18); CALCIUM LEVEL 9.6 MG/DL (8.8-10.2); CARBON DIOXIDE LEVEL 30 MEQ/L (21-32); CHLORIDE LEVEL 103 MEQ/L (98-107); CREATININE FOR GFR 0.93 MG/DL (0.55-1.30); GLOMERULAR FILTRATION RATE > 60.0 (>32); GLUCOSE, FASTING 123 MG/DL (70-100); POTASSIUM SERUM 3.7 MEQ/L (3.5-5.1); SODIUM LEVEL 139 MEQ/L (136-145); TOTAL PROTEIN 8.2 GM/DL (6.4-8.2)
--- NOTE | 2018-08-30 12:09 | REP ---
Chest, single AP view, patient sitting: Comparison is 04/01/2016. There is diffuse bilateral interstitial coarsening as an interval change. This is compatible with interstitial infiltrates. There are no focal alveolar infiltrates. No pleural effusions. Cardiac size is normal. The pool, mediastinum, skeletal structures are unchanged. Impression: Diffuse bilateral mild interstitial coarsening compatible with interstitial infiltrates. No focal alveolar infiltrate or pleural effusion. Electronically Signed by Kevin Patel MD 08/30/2018 12:01 P
== END ==
PROVIDERS: ATTEND Nurse Practitioner Adult Health
DX: R05 Cough (principal); R50.9 Fever, unspecified

== ENCOUNTER → 2018-09-03 | Outpatient (REF) | payer MEDICARE, OTHER, MEDICAID ==
[2018-09-03 11:09] LABS: HEMATOCRIT 36.3 % (36.0-47.0); HEMOGLOBIN 11.6 g/dl (12.0-15.5); MEAN CORPUSCULAR HEMOGLOBIN 29.7 pg (27.0-33.0); MEAN CORPUSCULAR VOLUME 92.8 fl (80.0-96.0); PLATELET COUNT, AUTOMATED 280 10^3/uL (150-450); RED BLOOD COUNT 3.91 10^6/uL (4.00-5.40); WHITE BLOOD COUNT 7.4 10^3/uL (4.0-10.0)
== END ==
PROVIDERS: ATTEND Family Medicine
DX: J18.9 Pneumonia, unspecified organism (principal)

== ENCOUNTER → 2018-09-20 | Outpatient (CLI) | payer MEDICARE, OTHER, MEDICAID ==
[~2018-09-20] MED LIST changes: -OMEP20CA3 PO; +OMEP20CA4 PO
--- NOTE | 2018-09-20 15:20 | REPMRS ---
Patient History The patient states she has not had a clinical breast exam in over a year. No known family history of cancer. Best films possible due to patient condition. [facility] lifetime risk for breast cancer is 1.3%. Digital Mammo Screening Bilat: September 20, 2018 - Exam #: [id number] Bilateral CC and MLO view(s) were taken. Technologist: Roxana Fisher, Technologist Prior study comparison: July 05, 2016, bilateral digital mammo screening bilat performed at [facility]. July 01, 2015, bilateral digital mammo screening bilat performed at [facility]. FINDINGS: There are scattered fibroglandular densities. There has been no change in the appearance of the mammogram from the prior studies. There is a mild amount of residual fibroglandular tissue which is fairly symmetric. There is no interval development of dominant mass, architectural distortion, or clustered microcalcification suggestive of malignancy. Assessment: BI-RADS/ACR category 1 mammogram. Negative Mammogram. Recommendation Routine screening mammogram in 1 year (for women over age 40). This mammogram was interpreted with the aid of an FDA-approved computer-aided dectection system. Electronically Signed By: Kevin Cordon MD 09/20/18 [id number]
== END ==
LOC: M RAD 13:30
PROVIDERS: ATTEND Family Medicine
DX: Z12.31 Encounter for screening mammogram for malignant neoplasm of breast (principal)

== ENCOUNTER → 2018-09-27 | Outpatient (CLI) | payer MEDICARE, OTHER, MEDICAID ==
--- NOTE | 2018-09-27 17:37 | REP ---
Chest x-ray: Two views. History: Bilateral shoulder and neck pain. Pneumonia. Comparison chest x-ray: August 30, 2018. Findings: Mild cardiomegaly is again observed unchanged. Lungs are well inflated and clear. Pleural angles are sharp. The aorta is calcific and somewhat tortuous. There are degenerative changes in the thoracic spine. Impression: Cardiomegaly unchanged. Otherwise no acute disease. No infiltrate seen. Electronically Signed by Kashif Mosquera MD 09/27/2018 07:26 P
--- NOTE | 2018-09-27 19:05 | REP ---
Bilateral shoulders: Six views. History: Bilateral shoulder pain. Neck pain. Findings: Three views of the left shoulder and three views of the right shoulder demonstrate severe degenerative osteoarthropathy involving both shoulders and both rotator cuffs. The subacromial space is narrowed bilaterally and there is spurring and remodeling of the undersurface of the acromion process. Glenohumeral and acromioclavicular joint osteoarthritic spurring is seen well established on both sides. There is some periarticular soft-tissue calcification superior to the acromioclavicular joint on the right side. Periarticular soft tissues are otherwise unremarkable. No erosive changes seen. 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 Narrowing of the subacromial spaces bilaterally consistent with degeneration of both rotator cuffs. Electronically Signed by Kashif Mosquera MD 09/27/2018 07:29 P
--- NOTE | 2018-09-27 19:07 | REP ---
Cervical spine series: Eight views. History: Neck pain. Findings: Cervical vertebral body heights are preserved. There is straightening of the normal cervical lordosis. No subluxation or instability is seen. There is degenerative disc narrowing and anterior osteophyte formation at C3-4, C4-5, C5-6 and C6-7. Posterior osteophytic ridging is seen at C4-5 and C5-6. No instability is seen. There is osteoarthritic facet hypertrophy bilaterally in the mid cervical spine on the AP view. Oblique images demonstrate uncovertebral spurring producing neural foraminal narrowing bilaterally at C4-5, C5-6 and C6-7 and to some degree on the left at C3-4. Impression: Degenerative spondylosis changes as above. Multilevel bilateral neural foraminal narrowing from uncovertebral spurring. Electronically Signed by Kashif Mosquera MD 09/27/2018 07:29 P
== END ==
LOC: M RAD 16:46
PROVIDERS: ATTEND Nurse Practitioner Adult Health
DX: M50.31 Other cervical disc degeneration, high cervical region (principal); M50.321 Other cervical disc degeneration at C4-C5 level; M50.322 Other cervical disc degeneration at C5-C6 level; M50.323 Other cervical disc degeneration at C6-C7 level; I51.7 Cardiomegaly; M51.34 Other intervertebral disc degeneration, thoracic region; M19.011 Primary osteoarthritis, right shoulder; M19.012 Primary osteoarthritis, left shoulder; M25.511 Pain in right shoulder; M25.512 Pain in left shoulder; R41.82 Altered mental status, unspecified

== ENCOUNTER → 2018-09-27 | Outpatient (REF) | payer MEDICARE, OTHER, MEDICAID ==
[2018-09-27 16:16] LABS: BASO % 0.2 % (0.0-1.0); EOS % 0.3 % (0.0-3.0); HEMATOCRIT 34.8 % (36.0-47.0); HEMOGLOBIN 10.9 g/dl (12.0-15.5); LYMPH # 0.9 10^3/uL (1.5-4.5); LYMPH % 8.4 % (24.0-44.0); MEAN CORPUSCULAR HEMOGLOBIN 28.9 pg (27.0-33.0); MEAN CORPUSCULAR HGB CONC 31.3 g/dl (32.0-36.5); MEAN CORPUSCULAR VOLUME 92.3 fl (80.0-96.0); MONO # 1.2 10^3/uL (0.0-0.8); MONO % 10.8 % (0.0-5.0); NEUTROPHILS # 8.5 10^3/uL (1.8-7.7); NEUTROPHILS % 79.8 % (36.0-66.0); PLATELET COUNT, AUTOMATED 243 10^3/uL (150-450); RED BLOOD COUNT 3.77 10^6/uL (4.00-5.40); WHITE BLOOD COUNT 10.7 10^3/uL (4.0-10.0)
[2018-09-27 16:17] LABS: APPEARANCE, URINE CLEAR (CLEAR); BACTERIA, URINE AUTO 1+ (NEGATIVE); BILIRUBIN, URINE AUTO NEGATIVE (NEGATIVE); BLOOD, URINE BLOOD NEGATIVE (NEGATIVE); COLOR, URINE YELLOW (YELLOW); GLUCOSE, URINE (UA) AUTO NEGATIVE (NEGATIVE); KETONE, URINE AUTO NEGATIVE (NEGATIVE); LEUKOCYTE ESTERASE, URINE AUTO NEGATIVE (NEGATIVE); NITRITE, URINE AUTO NEGATIVE (NEGATIVE); PROTEIN, URINE AUTO NEGATIVE (NEGATIVE); RBC, URINE AUTO 4 /HPF (0-3); SPECIFIC GRAVITY URINE AUTO 1.012 (1.002-1.035); SQUAMOUS EPITHELIAL CELL UR AU 0 /HPF (0-6); UROBILINOGEN, URINE AUTO 0.2 mg/dL (0.0-2.0); WBC, URINE AUTO 3 /HPF (0-3)
[2018-09-27 16:51] LABS: ALT/SGPT 11 U/L (12-78); BILIRUBIN,TOTAL 0.4 MG/DL (0.2-1.0); BLOOD UREA NITROGEN 15 MG/DL (7-18); CALCIUM LEVEL 8.5 MG/DL (8.8-10.2); CARBON DIOXIDE LEVEL 28 MEQ/L (21-32); CHLORIDE LEVEL 104 MEQ/L (98-107); CREATININE FOR GFR 0.82 MG/DL (0.55-1.30); GLOMERULAR FILTRATION RATE > 60.0 (>32); GLUCOSE, FASTING 136 MG/DL (70-100); NT-PRO BNP 671 PG/ML (<450); POTASSIUM SERUM 4.1 MEQ/L (3.5-5.1); SODIUM LEVEL 140 MEQ/L (136-145); TOTAL PROTEIN 6.6 GM/DL (6.4-8.2)
== END ==
PROVIDERS: ATTEND Family Medicine
DX: R41.82 Altered mental status, unspecified (principal)

== ENCOUNTER → 2018-10-04 | Outpatient (REF) | payer MEDICARE, OTHER, MEDICAID ==
[2018-10-04 11:07] LABS: HEMATOCRIT 38.8 % (36.0-47.0); HEMOGLOBIN 11.9 g/dl (12.0-15.5); MEAN CORPUSCULAR HEMOGLOBIN 28.3 pg (27.0-33.0); MEAN CORPUSCULAR HGB CONC 30.7 g/dl (32.0-36.5); MEAN CORPUSCULAR VOLUME 92.2 fl (80.0-96.0); PLATELET COUNT, AUTOMATED 366 10^3/uL (150-450); RED BLOOD COUNT 4.21 10^6/uL (4.00-5.40); WHITE BLOOD COUNT 7.6 10^3/uL (4.0-10.0)
[2018-10-04 11:41] LABS: ALBUMIN 3.2 GM/DL (3.2-5.2); ALT/SGPT 15 U/L (12-78); BILIRUBIN,TOTAL 0.3 MG/DL (0.2-1.0); BLOOD UREA NITROGEN 13 MG/DL (7-18); CALCIUM LEVEL 9.3 MG/DL (8.8-10.2); CARBON DIOXIDE LEVEL 32 MEQ/L (21-32); CHLORIDE LEVEL 103 MEQ/L (98-107); CREATININE FOR GFR 0.69 MG/DL (0.55-1.30); GLOMERULAR FILTRATION RATE > 60.0 (>32); GLUCOSE, FASTING 107 MG/DL (70-100); NT-PRO BNP 592 PG/ML (<450); POTASSIUM SERUM 4.2 MEQ/L (3.5-5.1); SODIUM LEVEL 142 MEQ/L (136-145); TOTAL PROTEIN 7.3 GM/DL (6.4-8.2)
== END ==
PROVIDERS: ATTEND Family Medicine
DX: I50.9 Heart failure, unspecified (principal)

== ENCOUNTER → 2018-10-23 | Outpatient (REF) | payer MEDICARE, OTHER, MEDICAID ==
[2018-10-23 09:52] LABS: HEMATOCRIT 35.7 % (36.0-47.0); HEMOGLOBIN 11.4 g/dl (12.0-15.5); MEAN CORPUSCULAR HEMOGLOBIN 28.3 pg (27.0-33.0); MEAN CORPUSCULAR HGB CONC 31.9 g/dl (32.0-36.5); MEAN CORPUSCULAR VOLUME 88.6 fl (80.0-96.0); PLATELET COUNT, AUTOMATED 247 10^3/uL (150-450); RED BLOOD COUNT 4.03 10^6/uL (4.00-5.40)
[2018-10-23 10:19] LABS: HEMOGLOBIN A1c 6.9 %
[2018-10-23 10:23] LABS: ALT/SGPT 9 U/L (12-78); BLOOD UREA NITROGEN 15 MG/DL (7-18); CALCIUM LEVEL 8.9 MG/DL (8.8-10.2); CARBON DIOXIDE LEVEL 29 MEQ/L (21-32); CHLORIDE LEVEL 105 MEQ/L (98-107); CHOLESTEROL LEVEL 166 MG/DL (<200); CHOLESTEROL RISK RATIO 3.688 (<5); CREATININE FOR GFR 0.75 MG/DL (0.55-1.30); GLOMERULAR FILTRATION RATE > 60.0 (>32); GLUCOSE, FASTING 111 MG/DL (70-100); HDL CHOLESTEROL 45 MG/DL (>40); LDL CHOLESTEROL 103 MG/DL (<100); NON-HDL-C 121 MG/DL; POTASSIUM SERUM 3.7 MEQ/L (3.5-5.1); SODIUM LEVEL 143 MEQ/L (136-145); TRIGLYCERIDES LEVEL 90 MG/DL (<150)
== END ==
PROVIDERS: ATTEND Family Medicine
DX: E11.9 Type 2 diabetes mellitus without complications (principal)

== ENCOUNTER → 2019-01-22 | Outpatient (REF) | payer MEDICARE, OTHER, MEDICAID ==
[2019-01-22 09:50] LABS: HEMOGLOBIN 11.4 g/dl (12.0-15.5); MEAN CORPUSCULAR HEMOGLOBIN 27.5 pg (27.0-33.0); MEAN CORPUSCULAR HGB CONC 30.8 g/dl (32.0-36.5); MEAN CORPUSCULAR VOLUME 89.4 fl (80.0-96.0); PLATELET COUNT, AUTOMATED 242 10^3/uL (150-450); RED BLOOD COUNT 4.14 10^6/uL (4.00-5.40); WHITE BLOOD COUNT 5.7 10^3/uL (4.0-10.0)
[2019-01-22 10:11] LABS: BLOOD UREA NITROGEN 15 MG/DL (7-18); CALCIUM LEVEL 9.2 MG/DL (8.8-10.2); CARBON DIOXIDE LEVEL 30 MEQ/L (21-32); CHLORIDE LEVEL 106 MEQ/L (98-107); CREATININE FOR GFR 0.81 MG/DL (0.55-1.30); GLOMERULAR FILTRATION RATE > 60.0 (>32); GLUCOSE, FASTING 112 MG/DL (70-100); POTASSIUM SERUM 3.7 MEQ/L (3.5-5.1); SODIUM LEVEL 142 MEQ/L (136-145)
== END ==
PROVIDERS: ATTEND Family Medicine
DX: E11.9 Type 2 diabetes mellitus without complications (principal)

== ENCOUNTER → 2019-04-25 | Outpatient (REF) | payer MEDICARE, OTHER, MEDICAID ==
[~2019-04-25] MED LIST changes: +OMEP1CAP73 PO; -OMEP20CA4 PO
[2019-04-25 13:33] LABS: HEMATOCRIT 44.1 % (36.0-47.0); HEMOGLOBIN 13.5 g/dl (12.0-15.5); MEAN CORPUSCULAR HGB CONC 30.6 g/dl (32.0-36.5); MEAN CORPUSCULAR VOLUME 91.3 fl (80.0-96.0); PLATELET COUNT, AUTOMATED 312 10^3/uL (150-450); RED BLOOD COUNT 4.83 10^6/uL (4.00-5.40); WHITE BLOOD COUNT 7.4 10^3/uL (4.0-10.0)
[2019-04-25 13:59] LABS: ALT/SGPT 16 U/L (12-78); BLOOD UREA NITROGEN 15 MG/DL (7-18); CALCIUM LEVEL 9.4 MG/DL (8.8-10.2); CARBON DIOXIDE LEVEL 33 MEQ/L (21-32); CHLORIDE LEVEL 103 MEQ/L (98-107); CREATININE FOR GFR 0.78 MG/DL (0.55-1.30); GLOMERULAR FILTRATION RATE > 60.0 (>32); GLUCOSE, FASTING 133 MG/DL (70-100); SODIUM LEVEL 143 MEQ/L (136-145)
[2019-04-25 14:31] LABS: HEMOGLOBIN A1c 6.7 %
== END ==
PROVIDERS: ATTEND Family Medicine
DX: E11.9 Type 2 diabetes mellitus without complications (principal); Z79.899 Other long term (current) drug therapy

== ENCOUNTER → 2019-05-09 | Outpatient (REF) | payer MEDICARE, OTHER, MEDICAID | PROVIDERS: ATTEND Family Medicine | DX: R19.7 Diarrhea, unspecified (principal) ==

== ENCOUNTER → 2019-06-25 | Outpatient (REF) | payer MEDICARE, OTHER, MEDICAID ==
[2019-06-25 10:25] LABS: HEMATOCRIT 44.5 % (36.0-47.0); MEAN CORPUSCULAR HEMOGLOBIN 28.6 pg (27.0-33.0); MEAN CORPUSCULAR HGB CONC 31.5 g/dl (32.0-36.5); MEAN CORPUSCULAR VOLUME 90.8 fl (80.0-96.0); PLATELET COUNT, AUTOMATED 240 10^3/uL (150-450); WHITE BLOOD COUNT 7.8 10^3/uL (4.0-10.0)
== END ==
PROVIDERS: ATTEND Family Medicine
DX: I48.91 Unspecified atrial fibrillation (principal)

== ENCOUNTER → 2019-07-02 | Outpatient (REF) | payer MEDICARE, OTHER, MEDICAID ==
[2019-07-02 12:14] LABS: HEMATOCRIT 39.3 % (36.0-47.0); MEAN CORPUSCULAR HEMOGLOBIN 27.9 pg (27.0-33.0); MEAN CORPUSCULAR HGB CONC 30.5 g/dl (32.0-36.5); MEAN CORPUSCULAR VOLUME 91.4 fl (80.0-96.0); PLATELET COUNT, AUTOMATED 261 10^3/uL (150-450); WHITE BLOOD COUNT 6.9 10^3/uL (4.0-10.0)
== END ==
PROVIDERS: ATTEND Family Medicine
DX: I48.91 Unspecified atrial fibrillation (principal)

== ENCOUNTER → 2019-07-10 | Outpatient (REF) | payer MEDICARE, OTHER, MEDICAID ==
[2019-07-10 11:56] LABS: HEMATOCRIT 37.6 % (36.0-47.0); HEMOGLOBIN 11.5 g/dl (12.0-15.5); MEAN CORPUSCULAR HEMOGLOBIN 27.9 pg (27.0-33.0); MEAN CORPUSCULAR HGB CONC 30.6 g/dl (32.0-36.5); MEAN CORPUSCULAR VOLUME 91.3 fl (80.0-96.0); PLATELET COUNT, AUTOMATED 258 10^3/uL (150-450); RED BLOOD COUNT 4.12 10^6/uL (4.00-5.40); WHITE BLOOD COUNT 5.7 10^3/uL (4.0-10.0)
== END ==
PROVIDERS: ATTEND Family Medicine
DX: I48.91 Unspecified atrial fibrillation (principal)

== ENCOUNTER → 2019-07-16 | Outpatient (REF) | payer MEDICARE, OTHER, MEDICAID ==
[2019-07-16 10:47] LABS: HEMATOCRIT 38.2 % (36.0-47.0); MEAN CORPUSCULAR HEMOGLOBIN 28.6 pg (27.0-33.0); MEAN CORPUSCULAR HGB CONC 31.4 g/dl (32.0-36.5); MEAN CORPUSCULAR VOLUME 91.2 fl (80.0-96.0); PLATELET COUNT, AUTOMATED 264 10^3/uL (150-450); RED BLOOD COUNT 4.19 10^6/uL (4.00-5.40); WHITE BLOOD COUNT 5.4 10^3/uL (4.0-10.0)
== END ==
PROVIDERS: ATTEND Family Medicine
DX: I48.91 Unspecified atrial fibrillation (principal)

== ENCOUNTER → 2019-07-19 | Outpatient (REF) | payer MEDICARE, OTHER, MEDICAID ==
[2019-07-20 01:32] LABS: APPEARANCE, URINE HAZY (CLEAR); BACTERIA, URINE AUTO 1+ (NEGATIVE); BILIRUBIN, URINE AUTO NEGATIVE (NEGATIVE); BLOOD, URINE BLOOD NEGATIVE (NEGATIVE); COLOR, URINE YELLOW (YELLOW); GLUCOSE, URINE (UA) AUTO NEGATIVE (NEGATIVE); KETONE, URINE AUTO NEGATIVE (NEGATIVE); LEUKOCYTE ESTERASE, URINE AUTO 2+ (NEGATIVE); MUCUS, URINE SMALL (NEGATIVE); NITRITE, URINE AUTO NEGATIVE (NEGATIVE); PROTEIN, URINE AUTO 1+ mg/dL (NEGATIVE); RBC, URINE AUTO 5 /HPF (0-3); SQUAMOUS EPITHELIAL CELL UR AU 1 /HPF (0-6); TRANSITIONAL EPITHELIAL AUTO 1 /HPF; UROBILINOGEN, URINE AUTO 0.2 mg/dL (0.0-2.0); WBC, URINE AUTO 13 /HPF (0-3)
== END ==
PROVIDERS: ATTEND Family Medicine
DX: N39.9 Disorder of urinary system, unspecified (principal); Z79.899 Other long term (current) drug therapy

== ENCOUNTER → 2019-07-20 | Outpatient (REF) | payer MEDICARE, OTHER, MEDICAID ==
[2019-07-20 18:13] LABS: HEMATOCRIT 41.1 % (36.0-47.0); HEMOGLOBIN 12.7 g/dl (12.0-15.5); MEAN CORPUSCULAR HGB CONC 30.9 g/dl (32.0-36.5); MEAN CORPUSCULAR VOLUME 90.7 fl (80.0-96.0); PLATELET COUNT, AUTOMATED 303 10^3/uL (150-450); RED BLOOD COUNT 4.53 10^6/uL (4.00-5.40); WHITE BLOOD COUNT 8.7 10^3/uL (4.0-10.0)
[2019-07-20 18:21] LABS: BLOOD UREA NITROGEN 13 MG/DL (7-18); CALCIUM LEVEL 9.3 MG/DL (8.8-10.2); CARBON DIOXIDE LEVEL 28 MEQ/L (21-32); CHLORIDE LEVEL 104 MEQ/L (98-107); CREATININE FOR GFR 0.69 MG/DL (0.55-1.30); GLOMERULAR FILTRATION RATE > 60.0 (>32); GLUCOSE, FASTING 134 MG/DL (70-100); SODIUM LEVEL 141 MEQ/L (136-145)
== END ==
PROVIDERS: ATTEND Family Medicine
DX: N39.0 Urinary tract infection, site not specified (principal)

== ENCOUNTER → 2019-07-24 | Outpatient (REF) | payer MEDICARE, OTHER, MEDICAID ==
[2019-07-24 10:40] LABS: HEMATOCRIT 41.2 % (36.0-47.0); HEMOGLOBIN 12.8 g/dl (12.0-15.5); MEAN CORPUSCULAR HEMOGLOBIN 27.9 pg (27.0-33.0); MEAN CORPUSCULAR HGB CONC 31.1 g/dl (32.0-36.5); PLATELET COUNT, AUTOMATED 321 10^3/uL (150-450); RED BLOOD COUNT 4.58 10^6/uL (4.00-5.40); WHITE BLOOD COUNT 8.8 10^3/uL (4.0-10.0)
[2019-07-24 11:01] LABS: BLOOD UREA NITROGEN 13 MG/DL (7-18); CALCIUM LEVEL 9.2 MG/DL (8.8-10.2); CARBON DIOXIDE LEVEL 29 MEQ/L (21-32); CHLORIDE LEVEL 104 MEQ/L (98-107); CREATININE FOR GFR 0.79 MG/DL (0.55-1.30); GLOMERULAR FILTRATION RATE > 60.0 (>32); GLUCOSE, FASTING 143 MG/DL (70-100); POTASSIUM SERUM 3.5 MEQ/L (3.5-5.1); SODIUM LEVEL 142 MEQ/L (136-145)
== END ==
PROVIDERS: ATTEND Family Medicine
DX: E11.9 Type 2 diabetes mellitus without complications (principal)

== ENCOUNTER → 2019-07-30 | Outpatient (REF) ==
[~2019-07-30] MED LIST changes: +ACET-838 PO; +ACET500T15 PO; +ACET65SU PR; +ALB2.5NEB INH; +BIOTLIQ9 MT; +BUDE8.43 NARES; +BUSP10TA PO; +BUSP15TA47 PO; +CARD120T4 PO; +D32000TA2 PO; +DEXA1TA PO; +DEXA5TA PO; +DIVA250T67 PO; +ENEMENE PR; +ESCI20TA16 PO; +GLUC1KIT IM; +HM S0.65 NARES; +IPRA0.00 NEB; +MILKSUS22 PO; +MIRT-60 PO; +MYRB25TA PO; +PRED20TA PO; +QUET100T2 PO; +QUET25TA3 PO; +SENN-50 PO; +XARE20TA PO; +ZINC1TAB PO; +ZITHTAB PO; +[UNRECOGNIZED DRUG - CODE] PO
== END ==
PROVIDERS: ATTEND Internal Medicine
DX: Z03.818 Encounter for observation for suspected exposure to other biological agents ruled out (principal)

== ENCOUNTER → 2019-09-25 | Outpatient (CLI) | payer MEDICARE, OTHER, MEDICAID ==
[~2019-09-25] MED LIST changes: -ACET-838 PO; -ACET500T15 PO; -ACET65SU PR; -ALB2.5NEB INH; -BIOTLIQ9 MT; -BUDE8.43 NARES; -BUSP10TA PO; -BUSP15TA47 PO; -CARD120T4 PO; -D32000TA2 PO; -DEXA1TA PO; -DEXA5TA PO; -DIVA250T67 PO; -ENEMENE PR; -ESCI20TA16 PO; -GLUC1KIT IM; -HM S0.65 NARES; -IPRA0.00 NEB; -MILKSUS22 PO; -MIRT-60 PO; -MYRB25TA PO; -PRED20TA PO; -QUET100T2 PO; -QUET25TA3 PO; -SENN-50 PO; -XARE20TA PO; -ZINC1TAB PO; -ZITHTAB PO; -[UNRECOGNIZED DRUG - CODE] PO
--- NOTE | 2019-09-25 14:19 | REPMRS ---
Patient History The patient states she has not had a clinical breast exam in over a year. No known family history of cancer. The [facility] lifetime risk for breast cancer is 1.0%. UMER Hummel. Digital Woman Screen Mammo: September 25, 2019 - Exam #: [id number] Bilateral CC and MLO view(s) were taken. Technologist: Letty Buchanan, Technologist Prior study comparison: September 20, 2018, bilateral digital mammo screening bilat, performed at [facility]. July 05, 2016, bilateral digital mammo screening bilat, performed at [facility]. FINDINGS: There are scattered fibroglandular densities. There has been no change in the appearance of the mammogram from the prior studies. There is a mild amount of residual fibroglandular tissue which is fairly symmetric. There is no interval development of dominant mass, architectural distortion, or clustered microcalcification suggestive of malignancy. Assessment: BI-RADS/ACR category 1 mammogram. Negative Mammogram. Recommendation Routine screening mammogram in 1 year (for women over age 40). This mammogram was interpreted with the aid of an FDA-approved computer-aided dectection system. Electronically Signed By: Kevin Cordon MD 09/25/19 [id number]
== END ==
LOC: M WHC 12:18
PROVIDERS: ATTEND Family Medicine
DX: Z12.31 Encounter for screening mammogram for malignant neoplasm of breast (principal)

== ENCOUNTER → 2019-10-01 | Outpatient (REF) | payer MEDICARE, OTHER, MEDICAID ==
[2019-10-01 19:47] LABS: APPEARANCE, URINE CLEAR (CLEAR); BACTERIA, URINE AUTO NEGATIVE (NEGATIVE); BILIRUBIN, URINE AUTO NEGATIVE (NEGATIVE); BLOOD, URINE BLOOD NEGATIVE (NEGATIVE); COLOR, URINE COLORLESS (YELLOW); GLUCOSE, URINE (UA) AUTO NEGATIVE (NEGATIVE); KETONE, URINE AUTO NEGATIVE (NEGATIVE); LEUKOCYTE ESTERASE, URINE AUTO 3+ (NEGATIVE); MUCUS, URINE SMALL (NEGATIVE); NITRITE, URINE AUTO NEGATIVE (NEGATIVE); PROTEIN, URINE AUTO NEGATIVE (NEGATIVE); RBC, URINE AUTO 2 /HPF (0-3); SPECIFIC GRAVITY URINE AUTO 1.003 (1.002-1.035); SQUAMOUS EPITHELIAL CELL UR AU 0 /HPF (0-6); UROBILINOGEN, URINE AUTO 0.2 mg/dL (0.0-2.0); WBC, URINE AUTO 57 /HPF (0-3)
== END ==
PROVIDERS: ATTEND Family Medicine
DX: R30.0 Dysuria (principal)

== ENCOUNTER → 2019-11-26 | Outpatient (REF) | payer MEDICARE, OTHER, MEDICAID ==
[2019-11-26 11:11] LABS: HEMATOCRIT 38.8 % (36.0-47.0); HEMOGLOBIN 11.9 g/dl (12.0-15.5); MEAN CORPUSCULAR HEMOGLOBIN 28.1 pg (27.0-33.0); MEAN CORPUSCULAR HGB CONC 30.7 g/dl (32.0-36.5); MEAN CORPUSCULAR VOLUME 91.7 fl (80.0-96.0); PLATELET COUNT, AUTOMATED 234 10^3/uL (150-450); RED BLOOD COUNT 4.23 10^6/uL (4.00-5.40); WHITE BLOOD COUNT 6.2 10^3/uL (4.0-10.0)
[2019-11-26 11:42] LABS: ALT/SGPT 15 U/L (12-78); BLOOD UREA NITROGEN 15 MG/DL (7-18); CALCIUM LEVEL 9.1 MG/DL (8.8-10.2); CARBON DIOXIDE LEVEL 33 MEQ/L (21-32); CHLORIDE LEVEL 104 MEQ/L (98-107); CHOLESTEROL LEVEL 180 MG/DL (<200); CREATININE FOR GFR 0.73 MG/DL (0.55-1.30); GLOMERULAR FILTRATION RATE > 60.0 (>32); GLUCOSE, FASTING 176 MG/DL (70-100); HDL CHOLESTEROL 50 MG/DL (>40); LDL CHOLESTEROL 107 MG/DL (<100); NON-HDL-C 130 MG/DL; POTASSIUM SERUM 3.5 MEQ/L (3.5-5.1); SODIUM LEVEL 140 MEQ/L (136-145); TRIGLYCERIDES LEVEL 116 MG/DL (<150)
== END ==
PROVIDERS: ATTEND Internal Medicine
DX: E11.65 Type 2 diabetes mellitus with hyperglycemia (principal)

== ENCOUNTER → 2020-01-20 | Outpatient (REF) | payer MEDICARE, OTHER, MEDICAID ==
[2020-01-20 11:14] LABS: HEMATOCRIT 38.8 % (36.0-47.0); HEMOGLOBIN 11.7 g/dl (12.0-15.5); MEAN CORPUSCULAR HEMOGLOBIN 27.8 pg (27.0-33.0); MEAN CORPUSCULAR HGB CONC 30.2 g/dl (32.0-36.5); MEAN CORPUSCULAR VOLUME 92.2 fl (80.0-96.0); PLATELET COUNT, AUTOMATED 256 10^3/uL (150-450); RED BLOOD COUNT 4.21 10^6/uL (4.00-5.40); WHITE BLOOD COUNT 6.1 10^3/uL (4.0-10.0)
[2020-01-20 11:38] LABS: BLOOD UREA NITROGEN 15 MG/DL (7-18); CALCIUM LEVEL 9.3 MG/DL (8.8-10.2); CARBON DIOXIDE LEVEL 33 MEQ/L (21-32); CHLORIDE LEVEL 103 MEQ/L (98-107); CREATININE FOR GFR 0.71 MG/DL (0.55-1.30); GLOMERULAR FILTRATION RATE > 60.0 (>32); GLUCOSE, FASTING 192 MG/DL (70-100); POTASSIUM SERUM 3.6 MEQ/L (3.5-5.1); SODIUM LEVEL 142 MEQ/L (136-145)
== END ==
PROVIDERS: ATTEND Nurse Practitioner Adult Health
DX: E11.9 Type 2 diabetes mellitus without complications (principal)

== ENCOUNTER → 2020-01-23 | Outpatient (REF) | PROVIDERS: ATTEND Internal Medicine | DX: Z20.828 Contact with and (suspected) exposure to other viral communicable diseases (principal) ==

== ENCOUNTER → 2020-01-26 | Outpatient (REF) | payer MEDICARE, OTHER, MEDICAID ==
[2020-01-26 10:21] LABS: HEMATOCRIT 38.4 % (36.0-47.0); HEMOGLOBIN 11.6 g/dl (12.0-15.5); MEAN CORPUSCULAR HEMOGLOBIN 28.4 pg (27.0-33.0); MEAN CORPUSCULAR HGB CONC 30.2 g/dl (32.0-36.5); MEAN CORPUSCULAR VOLUME 93.9 fl (80.0-96.0); PLATELET COUNT, AUTOMATED 254 10^3/uL (150-450); RED BLOOD COUNT 4.09 10^6/uL (4.00-5.40); WHITE BLOOD COUNT 13.6 10^3/uL (4.0-10.0)
[2020-01-26 10:45] LABS: CALCIUM LEVEL 8.8 MG/DL (8.8-10.2); CREATININE FOR GFR 1.03 MG/DL (0.55-1.30); GLOMERULAR FILTRATION RATE 54.6 (>32); POTASSIUM SERUM 3.5 MEQ/L (3.5-5.1)
[2020-01-26 14:16] LABS: INFLUENZA A AMPLIFICATION NEGATIVE (NEGATIVE); INFLUENZA B AMPLIFICATION NEGATIVE (NEGATIVE)
== END ==
PROVIDERS: ATTEND Internal Medicine
DX: R50.9 Fever, unspecified (principal)

== ENCOUNTER → 2020-01-27 | Outpatient (REF) | payer MEDICARE, OTHER, MEDICAID ==
--- NOTE | 2020-01-27 15:25 | REPPI ---
INDICATION: FEVER, ASPIRATION, COMPARISON: 09/27/2018 TECHNIQUE: The technique utilized in obtaining the radiograph has magnified the cardiac silhouette and attenuated the interstitial markings. FINDINGS: There is cardiomegaly accentuated by technique. The interstitial markings are diffusely increased. There is a patchy opacity in the left upper lobe. The pleural angles are sharp. The osseous structures are unchanged. IMPRESSION: There is evidence of left upper lobe pneumonia versus asymmetric pulmonary edema. <Electronically signed by Claudio Burgess > 01/27/20 2056
== END ==
PROVIDERS: ATTEND Nurse Practitioner Adult Health
DX: I51.7 Cardiomegaly (principal); R91.8 Other nonspecific abnormal finding of lung field; R50.9 Fever, unspecified

== ENCOUNTER → 2020-01-28 | Outpatient (REF) | payer MEDICARE, OTHER, MEDICAID ==
[2020-01-28 11:58] LABS: HEMATOCRIT 34.1 % (36.0-47.0); HEMOGLOBIN 10.8 g/dl (12.0-15.5); MEAN CORPUSCULAR HEMOGLOBIN 28.3 pg (27.0-33.0); MEAN CORPUSCULAR HGB CONC 31.7 g/dl (32.0-36.5); MEAN CORPUSCULAR VOLUME 89.3 fl (80.0-96.0); PLATELET COUNT, AUTOMATED 256 10^3/uL (150-450); RED BLOOD COUNT 3.82 10^6/uL (4.00-5.40); WHITE BLOOD COUNT 12.8 10^3/uL (4.0-10.0)
[2020-01-28 12:59] LABS: CALCIUM LEVEL 8.9 MG/DL (8.8-10.2); CREATININE FOR GFR 1.05 MG/DL (0.55-1.30); GLOMERULAR FILTRATION RATE 53.4 (>32); POTASSIUM SERUM 3.4 MEQ/L (3.5-5.1)
== END ==
PROVIDERS: ATTEND Nurse Practitioner Adult Health
DX: R50.9 Fever, unspecified (principal)

== ENCOUNTER → 2020-01-30 | Outpatient (REF) | payer MEDICARE, OTHER, MEDICAID ==
[~2020-01-30] MED LIST changes: +ACET-838 PO; +ACET500T15 PO; +ACET65SU PR; +ALB2.5NEB INH; +BIOTLIQ9 MT; +BUDE8.43 NARES; +BUSP10TA PO; +BUSP15TA47 PO; +CARD120T4 PO; +D32000TA2 PO; +DEXA1TA PO; +DEXA5TA PO; +DIVA250T67 PO; +ENEMENE PR; +ESCI20TA16 PO; +GLUC1KIT IM; +HM S0.65 NARES; +IPRA0.00 NEB; +MILKSUS22 PO; +MIRT-60 PO; +MYRB25TA PO; +PRED20TA PO; +QUET100T2 PO; +QUET25TA3 PO; +SENN-50 PO; +XARE20TA PO; +ZINC1TAB PO; +ZITHTAB PO; +[UNRECOGNIZED DRUG - CODE] PO
== END ==
LOC: EDSTATUS 03-07 15:33
PROVIDERS: ATTEND Internal Medicine
DX: Z20.828 Contact with and (suspected) exposure to other viral communicable diseases (principal)

== ENCOUNTER 2020-02-03 12:14 | Emergency (ER) | payer MEDICARE, OTHER, MEDICAID ==
[~2020-02-03 12:14] MED LIST changes: -ACET500T15 PO; -ACET65SU PR; -ALB2.5NEB INH; -BIOTLIQ9 MT; -BUDE8.43 NARES; -BUSP15TA47 PO; -CARD120T4 PO; -DEXA1TA PO; -DEXA5TA PO; -ENEMENE PR; -ESCI20TA PO; -GLUC1KIT IM; -HM S0.65 NARES; -IPRA0.00 NEB; -MILKSUS22 PO; -MYRB25TA PO; -NON-325T5 PO; -QUET100T2 PO; -REME30TA PO; -SENN-50 PO; -XARE20TA PO
[2020-02-03 12:23] VITALS: BP 121/64
[2020-02-03] MEDS ORDERED: ALPRAZolam 0.25 MG TAB PO ONE (13:15)
[2020-02-03] MEDS ORDERED: ACETAMINOPHEN 500 MG TAB PO ONE (13:30)
[2020-02-03] MEDS ORDERED: ESCITALOPRAM OXALATE 10 MG TAB (LEXAPRO) PO ONE (13:30)
[2020-02-03] MEDS ORDERED: ALPRAZolam 0.5 MG TAB PO ONE (13:30)
[2020-02-03] MEDS ORDERED: GABAPENTIN 100 MG CAP PO ONE (13:30)
[2020-02-03] MEDS ORDERED: GABAPENTIN 400 MG CAP PO ONE (13:30)
[2020-02-03] MEDS ORDERED: GABAPENTIN 300 MG CAP PO ONE (13:45)
[2020-02-03] MEDS ORDERED: DEXA5TA PO (13:48)
[2020-02-03] MEDS ORDERED: ACET65SU PR (13:48)
[2020-02-03] MEDS ORDERED: CARD120T4 PO (13:48)
[2020-02-03] MEDS ORDERED: ESCI20TA PO (13:48)
[2020-02-03] MEDS ORDERED: DULC10SU2 PR (13:48)
[2020-02-03] MEDS ORDERED: SENN-50 PO (13:48)
[2020-02-03] MEDS ORDERED: GLUC1KIT IM (13:48)
[2020-02-03] MEDS ORDERED: ACET-838 PO (13:48)
[2020-02-03] MEDS ORDERED: ACET500T15 PO (13:48)
[2020-02-03] MEDS ORDERED: XARE20TA PO (13:48)
[2020-02-03] MEDS ORDERED: ENEMENE PR (13:48)
[2020-02-03] MEDS ORDERED: ALB2.5NEB INH (13:48)
[2020-02-03] MEDS ORDERED: HM S0.65 NARES ×2 (13:48)
[2020-02-03] MEDS ORDERED: IPRA0.00 NEB (13:48)
[2020-02-03] MEDS ORDERED: MIRT-60 PO (13:48)
[2020-02-03] MEDS ORDERED: DEXA1TA PO (13:48)
[2020-02-03] MEDS ORDERED: MILKSUS22 PO (13:48)
[2020-02-03] MEDS ORDERED: QUET100T2 PO (13:48)
[2020-02-03] MEDS ORDERED: BIOTLIQ9 MT (13:48)
[2020-02-03] MEDS ORDERED: BUSP15TA47 PO (13:48)
[2020-02-03] MEDS ORDERED: MYRB25TA PO (13:48)
[2020-02-03] MEDS ORDERED: BUDE8.43 NARES (13:48)
--- NOTE | 2020-02-03 13:52 | REP ---
INDICATION: bony tenderness COMPARISON: None. TECHNIQUE: AP and lateral views of right femur performed. FINDINGS: No acute fracture or dislocation is seen. There is a total metallic hip prosthesis noted. Heterotopic calcifications are seen just lateral to the hip joint. Moderately severe arthritic changes are seen at the knee joint with diffuse joint space narrowing, subchondral sclerosis and spurring.Vascular calcifications are noted posteriorly. IMPRESSION: No fracture or dislocation. Total hip prosthesis in place. Moderately severe arthritic changes right knee joint. <Electronically signed by Kevin Cordon > 02/03/20 [id number]
--- NOTE | 2020-02-03 13:54 | REP ---
INDICATION: bony tenderness COMPARISON: None. TECHNIQUE: Four views of bilateral knees performed. FINDINGS: There is no acute fracture or dislocation. There are moderately severe bilateral arthritic changes at the knee joints with diffuse moderate to severe joint space narrowing, subchondral sclerosis and spurring.Vascular calcifications are seen posteriorly. IMPRESSION: No fracture or dislocation. Moderately severe arthritic changes bilaterally. <Electronically signed by Kevin Cordon > 02/03/20 [id number]
--- NOTE | 2020-02-03 14:08 | REP ---
INDICATION: large tender area below patella COMPARISON: None TECHNIQUE: Real time maldonado scale and color ultrasound examination using linear high-frequency transducer. FINDINGS: Directed ultrasound examination at the area of maximal pain and bruising just below the patella demonstrates large complex avascular collection measuring 4.2 x 2.3 x 4.2 cm consistent with hematoma. IMPRESSION: Findings most compatible with hematoma. <Electronically signed by Mario Robertson > 02/03/20 1424
== END 2020-02-03 15:00 | disposition home or self-care (01) ==
LOC: EDBD 12:14 → M ED 12:14
DX: S80.11XA Contusion of right lower leg, initial encounter (principal); X58.XXXA Exposure to other specified factors, initial encounter; Y92.128 Other place in nursing home as the place of occurrence of the external cause; E11.9 Type 2 diabetes mellitus without complications; I50.9 Heart failure, unspecified; I11.0 Hypertensive heart disease with heart failure; E78.5 Hyperlipidemia, unspecified; F33.9 Major depressive disorder, recurrent, unspecified; F41.9 Anxiety disorder, unspecified; G47.33 Obstructive sleep apnea (adult) (pediatric); M19.90 Unspecified osteoarthritis, unspecified site; Z99.89 Dependence on other enabling machines and devices; Z79.899 Other long term (current) drug therapy; Z88.0 Allergy status to penicillin; Z88.2 Allergy status to sulfonamides; Z91.040 Latex allergy status

== ENCOUNTER → 2020-02-03 | Outpatient (REF) | payer MEDICARE, OTHER, MEDICAID ==
[~2020-02-03] MED LIST changes: -ACET-838 PO; -BUSP10TA PO; -D32000TA2 PO; -DIVA250T67 PO; +ESCI20TA PO; -ESCI20TA16 PO; -MIRT-60 PO; +NON-325T5 PO; -PRED20TA PO; -QUET25TA3 PO; +REME30TA PO; -ZINC1TAB PO; -ZITHTAB PO; -[UNRECOGNIZED DRUG - CODE] PO
== END ==
PROVIDERS: ATTEND Internal Medicine
DX: Z53.9 Procedure and treatment not carried out, unspecified reason (principal)

== ENCOUNTER → 2020-02-05 | Outpatient (REF) | payer MEDICAID ==
[~2020-02-05] MED LIST changes: +ACET-838 PO; +ACET500T15 PO; +ACET65SU PR; +ALB2.5NEB INH; +BIOTLIQ9 MT; +BUDE8.43 NARES; +BUSP10TA PO; +BUSP15TA47 PO; +CARD120T4 PO; +D32000TA2 PO; +DEXA1TA PO; +DEXA5TA PO; +DIVA250T67 PO; +ENEMENE PR; +ESCI20TA16 PO; +GLUC1KIT IM; +HM S0.65 NARES; +IPRA0.00 NEB; +MILKSUS22 PO; +MIRT-60 PO; +MYRB25TA PO; +PRED20TA PO; +QUET100T2 PO; +QUET25TA3 PO; +SENN-50 PO; +XARE20TA PO; +ZINC1TAB PO; +ZITHTAB PO; +[UNRECOGNIZED DRUG - CODE] PO
== END ==
PROVIDERS: ATTEND Internal Medicine
DX: Z20.828 Contact with and (suspected) exposure to other viral communicable diseases (principal)

== ENCOUNTER → 2020-02-20 | Outpatient (REF) | payer MEDICARE, OTHER, MEDICAID ==
[~2020-02-20] MED LIST changes: -BUSP10TA PO; -D32000TA2 PO; -DIVA250T67 PO; +ESCI20TA PO; -ESCI20TA16 PO; -PRED20TA PO; -QUET25TA3 PO; -ZINC1TAB PO; -ZITHTAB PO; -[UNRECOGNIZED DRUG - CODE] PO
[2020-02-20 14:35] LABS: CLOSTRIDIUM DIFFICILE PCR NEGATIVE (NEGATIVE)
== END ==
PROVIDERS: ATTEND Internal Medicine
DX: R19.5 Other fecal abnormalities (principal)

== ENCOUNTER → 2020-02-23 | Outpatient (REF) | payer MEDICARE, OTHER, MEDICAID | PROVIDERS: ATTEND Internal Medicine | DX: J18.9 Pneumonia, unspecified organism (principal) ==

== ENCOUNTER → 2020-02-23 | Outpatient (REF) | payer MEDICARE, OTHER, MEDICAID ==
[2020-02-23 15:49] LABS: APPEARANCE, URINE CLEAR (CLEAR); BACTERIA, URINE AUTO NEGATIVE (NEGATIVE); BILIRUBIN, URINE AUTO NEGATIVE (NEGATIVE); BLOOD, URINE BLOOD NEGATIVE (NEGATIVE); COLOR, URINE YELLOW (YELLOW); GLUCOSE, URINE (UA) AUTO NEGATIVE (NEGATIVE); KETONE, URINE AUTO TRACE mg/dL (NEGATIVE); LEUKOCYTE ESTERASE, URINE AUTO NEGATIVE (NEGATIVE); MUCUS, URINE SMALL (NEGATIVE); NITRITE, URINE AUTO NEGATIVE (NEGATIVE); PROTEIN, URINE AUTO 1+ mg/dL (NEGATIVE); RBC, URINE AUTO 2 /HPF (0-3); SPECIFIC GRAVITY URINE AUTO 1.017 (1.002-1.035); SQUAMOUS EPITHELIAL CELL UR AU 0 /HPF (0-6); UROBILINOGEN, URINE AUTO 0.2 mg/dL (0.0-2.0); WBC, URINE AUTO 2 /HPF (0-3)
== END ==
PROVIDERS: ATTEND Internal Medicine
DX: Z20.828 Contact with and (suspected) exposure to other viral communicable diseases (principal); N39.0 Urinary tract infection, site not specified

== ENCOUNTER → 2020-02-24 | Outpatient (REF) | payer MEDICARE, OTHER, MEDICAID ==
[2020-02-24 10:10] LABS: BASO % 0.3 % (0.0-1.0); EOS # 0.2 10^3/uL (0.0-0.5); EOS % 2.6 % (0.0-3.0); HEMATOCRIT 36.4 % (36.0-47.0); HEMOGLOBIN 11.3 g/dl (12.0-15.5); LYMPH # 1.7 10^3/uL (1.5-5.0); LYMPH % 22.5 % (24.0-44.0); MEAN CORPUSCULAR HEMOGLOBIN 28.2 pg (27.0-33.0); MEAN CORPUSCULAR VOLUME 90.8 fl (80.0-96.0); MONO # 0.8 10^3/uL (0.0-0.8); MONO % 10.9 % (0.0-5.0); NEUTROPHILS # 4.9 10^3/uL (1.5-8.5); NEUTROPHILS % 63.3 % (36.0-66.0); PLATELET COUNT, AUTOMATED 445 10^3/uL (150-450); RED BLOOD COUNT 4.01 10^6/uL (4.00-5.40); WHITE BLOOD COUNT 7.7 10^3/uL (4.0-10.0)
[2020-02-24 10:40] LABS: ALBUMIN 2.5 GM/DL (3.2-5.2); ALT/SGPT 11 U/L (12-78); BILIRUBIN,TOTAL 0.3 MG/DL (0.2-1.0); BLOOD UREA NITROGEN 13 MG/DL (7-18); CALCIUM LEVEL 6.8 MG/DL (8.8-10.2); CARBON DIOXIDE LEVEL 33 MEQ/L (21-32); CHLORIDE LEVEL 102 MEQ/L (98-107); CREATININE FOR GFR 0.53 MG/DL (0.55-1.30); GLOMERULAR FILTRATION RATE > 60.0 (>32); GLUCOSE, FASTING 67 MG/DL (70-100); POTASSIUM SERUM 3.2 MEQ/L (3.5-5.1); SODIUM LEVEL 144 MEQ/L (136-145); TOTAL PROTEIN 5.9 GM/DL (6.4-8.2)
--- NOTE | 2020-02-24 15:58 | REPPI ---
INDICATION: 2 VIEW 125 PNEUMONIA. COMPARISON: Comparison radiograph January 27, 2020.. TECHNIQUE: Erect AP portable x-ray. FINDINGS: The infiltrate previously noted in the left upper lobe is improved. There is some streaky residual opacity in the left perihilar region. No other focal infiltrate is apparent. The patient is rotated to the left similar to the prior study. Advanced degenerative arthropathy of the shoulder is again seen. Mild cardiomegaly. IMPRESSION: Previously noted left perihilar infiltrate is improved although not completely resolved radiographically. No new infiltrate is seen. Mild cardiomegaly. <Electronically signed by Ozzy Mosquera > 02/24/20 [id number]
== END ==
PROVIDERS: ATTEND Internal Medicine
DX: J18.9 Pneumonia, unspecified organism (principal); I51.7 Cardiomegaly

== ENCOUNTER → 2020-02-26 | Outpatient (CLI) | payer MEDICARE, MEDICAID ==
[~2020-02-26] MED LIST changes: +BUSP10TA PO; +D32000TA2 PO; +DIVA250T67 PO; +PRED20TA PO; +QUET1TAB7 PO; +ZINC1TAB PO; +ZITHTAB PO; +[UNRECOGNIZED DRUG - CODE] PO
--- NOTE | 2020-02-26 13:52 | REP ---
INDICATION: DETERMINE DIET UPGRADE/ R/O SILENT ASPIRATION. COMPARISON: None. TECHNIQUE: The procedure was performed by Yanni Guerrero [facility], under the direct supervision of Dr. Mosquera. The procedure was performed with Alma Gaytan and Marli Corbett from speech pathology present. 5 ml aliquots of thin, pudding, mixed fruit, soft food, hard food and pill consistency barium was administered. FINDINGS: No aspiration or penetration was visualized during the exam. The detailed report of this examination will be provided by speech pathology. IMPRESSION: Unremarkable cookie swallow, detailed report will be provided by speech pathology. 2.1 minutes of fluoroscopy time was utilized for this procedure. Some fluoroscopic images are performed with last image hold technology. These images require no additional radiation <Electronically signed by Yanni Guerrero > 02/26/20 [id number] <Electronically signed by Ozzy Mosquera > 02/26/20 [id number]
== END ==
LOC: M ST 11:02
PROVIDERS: ATTEND Nurse Practitioner Adult Health
DX: Z87.01 Personal history of pneumonia (recurrent) (principal)

== ENCOUNTER → 2020-02-27 | Outpatient (REF) | payer MEDICARE, OTHER, MEDICAID ==
[~2020-02-27] MED LIST changes: -ESCI20TA PO; +ESCI20TA16 PO
[2020-02-27 14:16] LABS: INFLUENZA A AMPLIFICATION NEGATIVE (NEGATIVE); INFLUENZA B AMPLIFICATION NEGATIVE (NEGATIVE)
== END ==
PROVIDERS: ATTEND Internal Medicine
DX: Z20.828 Contact with and (suspected) exposure to other viral communicable diseases (principal)
CPT/HCPCS: 87502; U0003

== ENCOUNTER → 2020-03-01 | Outpatient (REF) | payer MEDICAID ==
[~2020-03-01] MED LIST changes: -BUSP10TA PO; -D32000TA2 PO; -DIVA250T67 PO; +ESCI20TA PO; -ESCI20TA16 PO; -PRED20TA PO; -QUET1TAB7 PO; -ZINC1TAB PO; -ZITHTAB PO; -[UNRECOGNIZED DRUG - CODE] PO
[2020-03-01 14:24] LABS: HEMATOCRIT 38.8 % (36.0-47.0); HEMOGLOBIN 11.9 g/dl (12.0-15.5); MEAN CORPUSCULAR HGB CONC 30.7 g/dl (32.0-36.5); MEAN CORPUSCULAR VOLUME 88.2 fl (80.0-96.0); PLATELET COUNT, AUTOMATED 440 10^3/uL (150-450); WHITE BLOOD COUNT 10.9 10^3/uL (4.0-10.0)
[2020-03-01 15:18] LABS: ALBUMIN 2.5 GM/DL (3.2-5.2); ALT/SGPT 13 U/L (12-78); BILIRUBIN,TOTAL 0.4 MG/DL (0.2-1.0); BLOOD UREA NITROGEN 15 MG/DL (7-18); CALCIUM LEVEL 6.6 MG/DL (8.8-10.2); CARBON DIOXIDE LEVEL 35 MEQ/L (21-32); CHLORIDE LEVEL 97 MEQ/L (98-107); CREATININE FOR GFR 0.78 MG/DL (0.55-1.30); GLOMERULAR FILTRATION RATE > 60.0 (>32); GLUCOSE, FASTING 72 MG/DL (70-100); POTASSIUM SERUM 2.5 MEQ/L (3.5-5.1); SODIUM LEVEL 143 MEQ/L (136-145); TOTAL PROTEIN 6.3 GM/DL (6.4-8.2)
== END ==
PROVIDERS: ATTEND Nurse Practitioner Adult Health
DX: R06.02 Shortness of breath (principal); Z20.828 Contact with and (suspected) exposure to other viral communicable diseases
CPT/HCPCS: 80053; 85027; U0002

== ENCOUNTER → 2020-03-04 | Outpatient (REF) | payer MEDICAID ==
[~2020-03-04] MED LIST changes: +BUSP10TA PO; +D32000TA2 PO; +DIVA250T67 PO; -ESCI20TA PO; +ESCI20TA16 PO; +PRED20TA PO; +QUET1TAB7 PO; +ZINC1TAB PO; +ZITHTAB PO; +[UNRECOGNIZED DRUG - CODE] PO
[2020-03-04 12:08] LABS: HEMATOCRIT 44.2 % (36.0-47.0); HEMOGLOBIN 13.4 g/dl (12.0-15.5); MEAN CORPUSCULAR HEMOGLOBIN 27.4 pg (27.0-33.0); MEAN CORPUSCULAR HGB CONC 30.3 g/dl (32.0-36.5); MEAN CORPUSCULAR VOLUME 90.4 fl (80.0-96.0); PLATELET COUNT, AUTOMATED 412 10^3/uL (150-450); RED BLOOD COUNT 4.89 10^6/uL (4.00-5.40); WHITE BLOOD COUNT 6.7 10^3/uL (4.0-10.0)
[2020-03-04 12:35] LABS: BLOOD UREA NITROGEN 13 MG/DL (7-18); CARBON DIOXIDE LEVEL 35 MEQ/L (21-32); CHLORIDE LEVEL 97 MEQ/L (98-107); CREATININE FOR GFR 0.75 MG/DL (0.55-1.30); GLOMERULAR FILTRATION RATE > 60.0 (>32); GLUCOSE, FASTING 113 MG/DL (70-100); POTASSIUM SERUM 3.3 MEQ/L (3.5-5.1); SODIUM LEVEL 141 MEQ/L (136-145)
== END ==
PROVIDERS: ATTEND Internal Medicine
DX: U07.1 COVID-19 (principal)

== ENCOUNTER → 2020-03-07 | Outpatient (REF) | payer MEDICAID ==
[~2020-03-07] MED LIST changes: +ESCI20TA PO; -ESCI20TA16 PO
[2020-03-07 10:47] LABS: HEMATOCRIT 40.1 % (36.0-47.0); HEMOGLOBIN 12.2 g/dl (12.0-15.5); MEAN CORPUSCULAR HEMOGLOBIN 27.1 pg (27.0-33.0); MEAN CORPUSCULAR HGB CONC 30.4 g/dl (32.0-36.5); MEAN CORPUSCULAR VOLUME 88.9 fl (80.0-96.0); PLATELET COUNT, AUTOMATED 318 10^3/uL (150-450); RED BLOOD COUNT 4.51 10^6/uL (4.00-5.40); WHITE BLOOD COUNT 11.7 10^3/uL (4.0-10.0)
[2020-03-07 11:27] LABS: BLOOD UREA NITROGEN 13 MG/DL (7-18); CALCIUM LEVEL 6.6 MG/DL (8.8-10.2); CARBON DIOXIDE LEVEL 39 MEQ/L (21-32); CHLORIDE LEVEL 98 MEQ/L (98-107); CREATININE FOR GFR 0.53 MG/DL (0.55-1.30); GLOMERULAR FILTRATION RATE > 60.0 (>32); GLUCOSE, FASTING 71 MG/DL (70-100); NT-PRO BNP 1842 PG/ML (<450); POTASSIUM SERUM 2.7 MEQ/L (3.5-5.1); SODIUM LEVEL 145 MEQ/L (136-145)
== END ==
PROVIDERS: ATTEND Internal Medicine
DX: R09.02 Hypoxemia (principal)

== ENCOUNTER 2020-03-08 12:41 | Inpatient (IN) | payer MEDICARE, OTHER, MEDICAID ==
[~2020-03-08] VITALS: Ht 167.6 cm; Wt 75.1 kg
[2020-03-08] MEDS: dexameTHASONE 4 MG/ML 1ML VIAL (J1100 PER 1MG) IV SCH (09:00)
[~2020-03-08 12:41] MED LIST changes: -BUSP10TA PO; -D32000TA2 PO; -DIVA250T67 PO; -PRED20TA PO; -QUET1TAB7 PO; -ZINC1TAB PO; -ZITHTAB PO; -[UNRECOGNIZED DRUG - CODE] PO
[2020-03-08] MEDS: QUEtiapine FUMARATE 25 MG TAB PO SCH (13:00)
[2020-03-08] MEDS ORDERED: DIGOXIN INJ 0.5 MG/2 ML AMP (J1160) IV STA (13:13)
[2020-03-08 13:37] LABS: BASO % 0.1 % (0.0-1.0); HEMATOCRIT 42.2 % (36.0-47.0); HEMOGLOBIN 12.6 g/dl (12.0-15.5); LYMPH # 0.3 10^3/uL (1.5-5.0); LYMPH % 1.9 % (24.0-44.0); MEAN CORPUSCULAR HEMOGLOBIN 26.9 pg (27.0-33.0); MEAN CORPUSCULAR HGB CONC 29.9 g/dl (32.0-36.5); MEAN CORPUSCULAR VOLUME 90.2 fl (80.0-96.0); MONO # 0.7 10^3/uL (0.0-0.8); MONO % 4.7 % (0.0-5.0); NEUTROPHILS # 13.6 10^3/uL (1.5-8.5); NEUTROPHILS % 92.6 % (36.0-66.0); PLATELET COUNT, AUTOMATED 316 10^3/uL (150-450); RED BLOOD COUNT 4.68 10^6/uL (4.00-5.40); WHITE BLOOD COUNT 14.7 10^3/uL (4.0-10.0)
--- NOTE | 2020-03-08 13:48 | REP ---
INDICATION: Coronavirus workup COMPARISON: 02/24/2020 TECHNIQUE: Portable AP view of the chest FINDINGS: Diffuse significant bilateral airspace disease compatible with acute multifocal pneumonia and COVID-19 pulmonary disease. IMPRESSION: Diffuse significant bilateral infiltrates compatible with multifocal pneumonia and COVID-19 pulmonary disease. <Electronically signed by Mario Robertson > 03/08/20 [id number]
[2020-03-08 14:19] LABS: ALBUMIN 2.4 GM/DL (3.2-5.2); ALT/SGPT 17 U/L (12-78); BILIRUBIN,TOTAL 0.4 MG/DL (0.2-1.0); BLOOD UREA NITROGEN 18 MG/DL (7-18); CALCIUM LEVEL 6.9 MG/DL (8.8-10.2); CARBON DIOXIDE LEVEL 35 MEQ/L (21-32); CHLORIDE LEVEL 98 MEQ/L (98-107); CK-MB VALUE MASS 1.7 NG/ML (<3.6); CPK CREATINE PHOSPHOKINASE 77 U/L (26-192); CREATININE FOR GFR 0.63 MG/DL (0.55-1.30); FERRITIN 505 NG/ML (8-252); GLOMERULAR FILTRATION RATE > 60.0 (>32); GLUCOSE, FASTING 140 MG/DL (70-100); LDH LACTATE DEHYDROGENASE 618 U/L (84-246); MB/CK RELATIVE INDEX 2.21 (< OR =4); POTASSIUM SERUM 4.6 MEQ/L (3.5-5.1); SODIUM LEVEL 142 MEQ/L (136-145); TOTAL PROTEIN 6.5 GM/DL (6.4-8.2); TROPONIN I 0.04 NG/ML (< 0.10)
[2020-03-08] MEDS ORDERED: ZITHTAB PO (14:45)
[2020-03-08] MEDS ORDERED: ZINC1TAB PO (14:45)
[2020-03-08] MEDS ORDERED: QUET1TAB7 PO (14:45)
[2020-03-08] MEDS ORDERED: PRED20TA PO (14:45)
[2020-03-08] MEDS ORDERED: D32000TA2 PO (14:45)
[2020-03-08] MEDS ORDERED: DIVA250T67 PO (14:45)
[2020-03-08] MEDS ORDERED: BUSP10TA PO (14:45)
[2020-03-08] MEDS ORDERED: [UNRECOGNIZED DRUG - CODE] PO (14:45)
[2020-03-08] MEDS ORDERED: MAALOX 30 ML SUSP *UDC PO PRN (15:00)
[2020-03-08] MEDS ORDERED: ACETAMINOPHEN TAB 650MG DOSE (2X325MG) PO PRN (15:00)
[2020-03-08] MEDS ORDERED: MOM 30ML SUSPENSION UDC PO PRN (15:00)
[2020-03-08] MEDS ORDERED: METOPROLOL 5 MG/5 ML VIAL IV STA (15:27)
--- NOTE | 2020-03-08 15:35 | HPEPDOC ---
[facility] Medical History & Physical Date of Admission Mar 08, 2020 Date of Service: Mar 08, 2020 History and Physical CHIEF COMPLAINT: shortness of breath, hypoxia HISTORY OF PRESENT ILLNESS: 84 yo F [facility] resident, with a PMHx of AFib (AC on xarelto), COPD on 2L home 2, CVA, severe anxiety and depression, was diagnosed with COVID-19 on 03/01/20, after becoming hypoxic. She required 8L NC at [facility], thought to be decompensating and brought to ED. On arrival patient was found to be hypoxic to 80s, started on high flow FiO2 100 via NRB. Found to be in RVR, given 0.25 mg digoxin with no improvement. CXR showing changes c/w covid-19 pna as well as multifocal opacities c/w pneumonia. Upon exam, patient is alert and oriented x 3, although somnolonent and fatigued, able to answer yes/no questions but most of hx obtain from collateral sources (chart review, as well as endorsement from Dr. Jones). Patient denies chest pain, cough, subjective fevers, chills. She endorses dyspnea as well as thirst. Labs reviewed. WBC 14.7. Hgb 12.6. HCt 42.4. CRP 22.1. BNP 2100. Feritin 505. LDH 518. D dimer 1733. ABG pH 7.5. pO2 65. pCO2 43. HCO 34.2. PAST MEDICAL HISTORY: Chronic atrial fibrillation Hypertension COPD on 2L of home O2 CVA Anxiety Depression Insomnia PAST SURGICAL HISTORY: Carpal tunnel release Total hysterectomy D&C R total hip arthroplasty SOCIAL HISTORY: Patient denies smoking Patient denies etoh use Patient denies illicit drug use FAMILY HISTORY: patient unable to provide at this time ALLERGIES: Please see below. REVIEW OF SYSTEMS: Complete 10 point HPI could not be performed due to patient shortness of breath and inability speak full sentences without desaturating. ROS is positive for the findings noted in HPI. HOME MEDICATIONS: Please see below. PHYSICAL EXAMINATION: VITAL SIGNS: please see below General: short of breath, uncomfortable HEENT: PERRLA, EOMI, sclerae clear, dry mucous membranes Neck: supple, normal ROM, no JVD Respiratory: poor air entry bilaterally, rhonchi, crackles at lung bases CVS: irrerugalr rhythm, hr 130s, no rubs Abdo: soft, no masses, no hepatosplenomegaly, BS+, no rebound tenderness Extremities: no edema, pulses 2+ MSK: no joint deformities, normal ROM Neuro: full neuro exam could not be completed, moving all 4 extremities, generalizes weakness Psych: calm, cooperative, AAO x 3 LABORATORY DATA: See below. IMAGING: CXR 03/08/20: IMPRESSION: Diffuse significant bilateral infiltrates compatible with multifocal pneumonia and COVID-19 pulmonary disease. MICROBIOLOGY: Please see below. ASSESSMENT: . . PLAN: #acute hypoxic respiratory failure 2/2 COVID-19 and CAP: - Dx covid-19 positive on 03/01/20, - dexamethasone 6 mg IV daily - remdesivir 5 days - Vapotherm, titrate to maintain pO2 88-92% - monitor inflammatory panel daily #Sepsis 2/2 covid-19 vs and CAP - WBC 14.7. T 95. RR 30, HR 130s (afib) - LA wnl - empiric vancomycin and cefepime (pseudomonal coverage as [facility] resident) - IVF 125 cc x 1L - blood cultures sent and pending #CAP: - WBC 14.7, cough, dyspnea - per reports patient diagnosed with PNA 1 month ago at [facility], has been in steady decline since - CXR showing multi-focal pna on covid-19 - check procalcitonin #Afib with RVR - HR 130s - given 0.25 mg digoxin in ER, no response - after 5 mg IV metoprolol, rate controlled, 90s. - c/w xarelto for AC - c/w cardizem 120 mg BID - tele - monitor Mg, Phos #DM2 - FSBS AC and HS - ISS - Hypoglycemic precautions #COPD - 2L on home O2 - c/w home inhalers #Dehydration - on physical exam, dry mmm - gently IVF Dispo: patient is from [facility]. I spoke to patient's children (Briana Fields [phone], Evgeny Stacyunce [phone]) and updated them of progress. Their are concerned about the patient's comfort at this time, but as yet would like active management, will discuss SENIOR ANALYTIC CONSULTANT amongst themselves. DNR/DNI on arrival. Vital Signs Vital Signs Date Time Temp Pulse Resp B/P (MAP) Pulse Ox O2 Delivery O2 Flow Rate FiO2 03/08/20 14:11 135 91 03/08/20 14:00 145/82 (103) 03/08/20 13:38 Non-Rebreather 03/08/20 13:13 95.4 10.0 Laboratory Data Labs 24H Laboratory Tests 2 03/08/20 13:17: Immature Granulocyte % (Auto) 0.7, Neutrophils (%) (Auto) 92.6H, Lymphocytes (%) (Auto) 1.9L, Monocytes (%) (Auto) 4.7, Eosinophils (%) (Auto) 0.0, Basophils (%) (Auto) 0.1, Neutrophils # (Auto) 13.6H, Lymphocytes # (Auto) 0.3L, Monocytes # (Auto) 0.7, Eosinophils # (Auto) 0.0, Basophils # (Auto) 0.0, Nucleated Red Blood Cells % (auto) 0.0, D-Dimer, Quantitative 1733.07H, Anion Gap 9, Glomerular Filtration Rate > 60.0, Lactic Acid Level 1.7, Calcium Level 6.9L, Ferritin 505H, Total Bilirubin 0.4, Aspartate Amino Transf (AST/SGOT) 44H, Alanine Aminotransferase (ALT/SGPT) 17, Alkaline Phosphatase 100, Lactate Dehydrogenase 618H, Total Creatine Kinase 77, Creatine Kinase MB 1.7, Creatine Kinase MB Relative Index 2.21, Troponin I 0.04, C-Reactive Protein, Quantitative 22.10H, Total Protein 6.5, Albumin 2.4L, Albumin/Globulin Ratio 0.6L 03/08/20 13:34: POC pH (Misc Panel) 7.509H, POC Base Excess (Misc Panel) 11.0H, POC Saturated Percent O2 (Misc) 94L, POC pO2 (Misc Panel) 65.0L, POC pCO2 (Misc Panel) 43.0, POC HCO3 (Misc Panel) 34.2H, POC Total CO2 (Misc Panel) 35.0H CBC/BMP Laboratory Tests 03/08/20 13:17 Microbiology Microbiology 03/08/20 Blood Culture, Received Pending 03/08/20 Blood Culture, Received Pending Home Medications Scheduled Acetaminophen (Acetaminophen) 500 Mg Tablet, 500 MG PO BID Alprazolam (Alprazolam) 0.25 Mg Tab, 0.25 MG PO BID 0800 2000 Alprazolam (Xanax) 0.5 Mg Tab, 0.5 MG PO DAILY 1400 Ascorbic Acid (Vitamin C with Desire Hips) 500 Mg Tablet, 500 MG PO QHS Azithromycin (Zithromax) 250 Mg Tablet, 250 MG PO DAILY Bimatoprost (Lumigan) 50 Drop/2.5 Ml Stacey, 1 DROP OU QHS Budesonide (Rhinocort Allergy) 8.43 Ml [place].pump, 1 SPRAY NARES DAILY Buspirone HCl (Buspirone HCl) 10 Mg Tablet, 10 MG PO BID 0800, 1630 Cholecalciferol (Vitamin D3) (Vitamin D3) 50 Mcg Tablet, 50 MCG PO QHS Diltiazem HCl (Cardizem) 120 Mg Tablet, 120 MG PO BID Divalproex Sodium (Divalproex Sodium) 250 Mg Tablet.dr, 250 MG PO TID Escitalopram Oxalate (Escitalopram Oxalate) 20 Mg Tablet, 20 MG PO DAILY TAKES AT NOON Furosemide (Lasix) 20 Mg Tab, 60 MG PO DAILY Gabapentin (Gabapentin) 600 Mg Tab, 600 MG PO QID 0800/1200/1600/2000 Ipratropium/Albuterol Sulfate (Iprat-Albut 0.5-3(2.5) mg/3 ml) 3 Ml Ampul.neb, 1 VIAL NEB QID Menthol (Bengay Ultra Strength) 5 % Pad, 1 PATCH TOP DAILY APPLY TO BACK Mirabegron (Myrbetriq) 25 Mg Tab.er.24h, 25 MG PO QHS Mirtazapine (Remeron) 30 Mg Tablet, 30 MG PO QHS Omeprazole (Omeprazole) 20 Mg Cap, 40 MG PO QHS Potassium Chloride (Potassium Chloride) 10 Meq Tab, 10 MEQ PO DAILY Prednisone (Prednisone) 20 Mg Tablet, 40 MG PO DAILY Quetiapine Fumarate (Quetiapine Fumarate) 100 Mg Tablet, 100 MG PO QHS Quetiapine Fumarate (Quetiapine Fumarate) 25 Mg Tablet, 25 MG PO BID 0800, 1300 Rivaroxaban (Xarelto) 20 Mg Tablet, 20 MG PO QHS Sennosides/Docusate Sodium (Senna Plus Tablet) 1 Each Tablet, 1 TAB PO BID Sodium Chloride (Saline Nasal [place]) 44 Ml [place], 2 SPRAYS NARES BID Zinc Amino Acid Chelate (Zinc Chelated) 50 Mg Tablet, 100 MG PO QHS Scheduled PRN Acetaminophen (Acetaminophen) 325 Mg Tablet, 650 MG PO Q4H PRN for PAIN Acetaminophen (Acetaminophen) 650 Mg Supp.rect, 650 MG VA Q4H PRN for PAIN / FEVER Albuterol Sulfate (Albuterol Sulfate) 2.5 Mg/0.5 Ml Vial.neb, 2.5 MG INH Q2H PRN for SOB/WHEEZING Bisacodyl (Dulcolax) 10 Mg Supp.rect, 10 MG VA DAILY PRN for CONSTIPATION Glucagon,Human Recombinant (Glucagon Emergency Kit) 1 Mg Vial, 1 MG IM ASDIRECTED PRN for LOW BLOOD SUGAR Magnesium Hydroxide (Milk of Magnesia) 400 Mg/5 Ml Oral.susp, 2,400 MG PO DAILY PRN for CONSTIPATION Saliva Substitute Combo No.9 (Biotene) 237 Ml Mouthwash, 15 ML MT TID PRN for DRY MOUTH Sodium Chloride (Saline Nasal [place]) 44 Ml [place], 1 SPRAY NARES Q1H PRN for ALLERGIC RHINITIS Sodium Phosphate,[place]-Dibasic (Enema) 133 Ml Enema, 1 PRABHAKAR VA DAILY PRN for CONSTIPATION Allergies Coded Allergies: Penicillins (Verified Allergy, Intermediate, 02/03/20) latex (Verified Allergy, Intermediate, 02/03/20) Sulfa (Sulfonamide Antibiotics) (Verified Allergy, Unknown, 02/03/20) A-FIB/CHADSVASC A-FIB History Current/History of A-Fib/PAF?: Yes Current PO Anticoag Therapy: Yes SABIHA EVANS MD Mar 08, 2020 15:35
[2020-03-08] MEDS ORDERED: VANCOMYCIN HCL 1,000 MG in IV FLUID PLACE HOLDER 1 EA IV SCH (16:15)
[2020-03-08] MEDS ORDERED: BENZONATATE 100 MG CAP PO PRN (16:15)
[2020-03-08] MEDS ORDERED: COMBIVENT RESPIMAT 100-20MCG INHALER 4GM INH PRN (16:15)
[2020-03-08 16:26] VITALS: BP 144/69
[2020-03-08] MEDS ORDERED: CEFEPIME HCL 2 GM in D5W MINI-BAG PLUS 50 ML IV SCH (18:00)
[2020-03-08 18:30] VITALS: BP 163/77
[2020-03-08] MEDS: GABAPENTIN 300 MG CAP PO SCH ×2 (18:54→21:02)
[2020-03-08] MEDS ORDERED: NS 1,000 ML IV SCH (19:30)
[2020-03-08] MEDS ORDERED: GLUCAGON INJ 1MG VIAL SC PRN (19:45)
[2020-03-08] MEDS ORDERED: GLUCOSE 4GM CHEW TABLET PO PRN (19:45)
[2020-03-08] MEDS ORDERED: DEXTROSE 50% 50 ML SYRINGE IV PRN (19:45)
[2020-03-08] MEDS ORDERED: VANCOMYCIN HCL 1,000 MG, VIAL MATE ADAPTER 1 EACH in D5W 250 ML IV ONE (20:00)
[2020-03-08 20:18] LABS: ABG BASE EXCESS 8.3 (-2.0-2.0); ABG HCO3 33.2 MEQ/L (22.0-26.0); ABG PARTIAL PRESSURE O2 58.3 mmHg (75.0-100.0); ABG TOTAL CO2 34.7 MEQ/L (23.0-31.0); ABG pH (ARTERIAL) 7.467 UNITS (7.350-7.450)
[2020-03-08 20:48] VITALS: BP 176/84
[2020-03-08 20:48] LABS: NT-PRO BNP 2152 PG/ML (<450)
[2020-03-08] MEDS ORDERED: MIRTAZAPINE 15 MG TAB PO SCH (21:00)
[2020-03-08] MEDS: busPIRone 10 MG TAB PO SCH (21:00)
[2020-03-08] MEDS ORDERED: HumaLOG INSULIN (NovoLOG) PER UNIT SC SCH (21:00)
[2020-03-08] MEDS ORDERED: SODIUM CHLORIDE NASAL 0.65% SPRAY BTL (OCEAN) SCH (21:00)
[2020-03-08] MEDS ORDERED: QUEtiapine FUMARATE 100 MG TAB PO SCH (21:00)
[2020-03-08] MEDS ORDERED: RIVAROXABAN 20 MG TAB (XARELTO) PO SCH (21:00)
[2020-03-08] MEDS ORDERED: OMEPRAZOLE 20 MG CAP PO SCH (21:00)
[2020-03-08] MEDS ORDERED: DIVALPROEX 250 MG TAB PO SCH (21:00)
[2020-03-08] MEDS: DOCUSATE SODIUM 100MG CAPSULE PO SCH (21:01)
[2020-03-08] MEDS ORDERED: SODIUM CHLORIDE 0.9% INJ 10 ML SYR IV ONE (21:30)
--- NOTE | 2020-03-08 22:53 | IPNPDOC ---
Text Note Date of Service The patient was seen on 03/08/20. NOTE TIME OF SERVICE 1030PM I was called by the patient's RN to inform me that the patient's O2 sats were between 79-82% on max vapotherm. At the time of my evaluation the patient was difficult to arouse, we had to talk very loudly and perform sternal rub to get her to tell us her name & where she was (she thought she was at [facility]). When she tried to speak she became more tachypneic. During the assessment she kept her eyes closed. I suspect she has Metabolic Encephalopathy 2/2 hypoxia. I called her children Akhil and Briana who agreed to transition to KENNEL OPERATOR. I also informed them that due to their mother's COVID status they would not be able to visit. VS,Josebone, I+O VS, Fishbone, I+O Laboratory Tests 03/08/20 13:17 Vital Signs Date Time Temp Pulse Resp B/P (MAP) Pulse Ox O2 Delivery O2 Flow Rate FiO2 03/08/20 20:48 98.3 105 18 176/84 (114) 88 HVNI-Vapotherm 40.0 100 DL CONTRERAS MD Mar 08, 2020 22:53
[2020-03-08] MEDS ORDERED: SCOPOLAMINE 1MG TRANSDERMAL PATCH TOP PRN (23:00)
[2020-03-08] MEDS ORDERED: ATROPINE SULFATE 1% OP SOLN 2 ML BTL SL PRN (23:00)
[2020-03-08] MEDS ORDERED: LORazepam 2 MG/ML VIAL IV PRN (23:00)
[2020-03-09] MEDS: MORPHINE 2 MG/ML 1ML VIAL (J2270) IV PRN ×2 (03:36→06:09)
[2020-03-09] MEDS ORDERED: ONDANSETRON 4MG/2ML VIAL IV PRN (04:00)
[2020-03-09] MEDS ORDERED: VANCOMYCIN HCL 1,000 MG, VIAL MATE ADAPTER 1 EACH in D5W 250 ML IV SCH (05:00)
--- NOTE | 2020-03-09 05:42 | ECGEPIP ---
[facility] - ED Test Date: 2020-03-08 Pat Name: JEANNETTE ORTEGA Department: Room: - Gender: Female Real Time Analyst: : 1935 Requested By: Pablo Milner Order Number: [id number] Reading MD: Pablo Thomas Measurements Intervals [place] Rate: 130 P: DE: 0 QRS: -3 QRSD: 81 T: 26 QT: 294 QTc: 433 Interpretive Statements ATRIAL FIBRILLATION WITH RAPID VENTRICULAR RESPONSE WITH ABERRANT CONDUCTION OR VENTRICULAR PREMATURE COMPLEXES MINIMAL ST DEPRESSION RATE CHANGE COMPARED TO 01/27/17 Electronically Signed on 03-09-2020 5:41:56 EST by Pablo Thomas
[2020-03-09] MEDS ORDERED: HumaLOG INSULIN (NovoLOG) PER UNIT SC SCH (07:30)
[2020-03-09] MEDS: dexameTHASONE 4 MG/ML 1ML VIAL (J1100 PER 1MG) IV SCH (07:56)
[2020-03-09] MEDS: busPIRone 10 MG TAB PO SCH (07:56)
[2020-03-09] MEDS: DOCUSATE SODIUM 100MG CAPSULE PO SCH (07:56)
[2020-03-09] MEDS: QUEtiapine FUMARATE 25 MG TAB PO SCH (07:56)
[2020-03-09] MEDS ORDERED: FUROSEMIDE 20 MG TAB PO SCH (09:00)
[2020-03-09] MEDS ORDERED: POTASSIUM CHLORIDE 10 MEQ SR TABLET PO SCH (09:00)
[2020-03-09] MEDS ORDERED: ZINC SULFATE 220 MG CAP PO SCH (09:00)
[2020-03-09] MEDS ORDERED: ASCORBIC ACID 500 MG TAB PO SCH (09:00)
--- NOTE | 2020-03-09 11:59 | IPNPDOC ---
Date Seen The patient was seen on 03/09/20. Progress Note NOTE I was informed of patient's by nursing, 0838. Patient was seen at bedside. There was no spontaneous eye opening or movement or chest rise seen. She does not respond to verbal or tactile or pain stimuli. Patient had no palpable carotid pulses. Auscultation of the entire precordium did not reveal heart sounds. No breath sounds were heard on pulmonic auscultation bilaterally. Corneal reflex was absent. Cause of : sepsis secondary to covid-19 infection complication by acute hypoxic respiratory failure. Body released to [facility]. I spoke to patient's son Evgeny Fields at [phone] and offered my condolences. VS, I&O, 24H, Fishbone Vital Signs/I&O Vital Signs Date Time Temp Pulse Resp B/P (MAP) Pulse Ox O2 Delivery O2 Flow Rate FiO2 03/09/20 04:00 4.0 03/09/20 03:36 25 03/08/20 20:48 98.3 105 176/84 (114) 88 HVNI-Vapotherm 100 I&O- Last 24 Hours up to 6 AM 03/09/20 06:00 Intake Total 250 ml Balance 250 ml Laboratory Data 24H LABS Laboratory Tests 2 03/08/20 13:17: Immature Granulocyte % (Auto) 0.7, Neutrophils (%) (Auto) 92.6H, Lymphocytes (%) (Auto) 1.9L, Monocytes (%) (Auto) 4.7, Eosinophils (%) (Auto) 0.0, Basophils (%) (Auto) 0.1, Neutrophils # (Auto) 13.6H, Lymphocytes # (Auto) 0.3L, Monocytes # (Auto) 0.7, Eosinophils # (Auto) 0.0, Basophils # (Auto) 0.0, Nucleated Red Blood Cells % (auto) 0.0, D-Dimer, Quantitative 1733.07H, Anion Gap 9, Glomerular Filtration Rate > 60.0, Lactic Acid Level 1.7, Calcium Level 6.9L, Ferritin 505H, Total Bilirubin 0.4, Aspartate Amino Transf (AST/SGOT) 44H, Alanine Aminotransferase (ALT/SGPT) 17, Alkaline Phosphatase 100, Lactate Dehydrogenase 618H, Total Creatine Kinase 77, Creatine Kinase MB 1.7, Creatine Kinase MB Relative Index 2.21, Troponin I 0.04, C-Reactive Protein, Quantitative 22.10H, WW-Lpz-J-Type Natriuretic Peptide 2152H, Total Protein 6.5, Albumin 2.4L, Albumin/Globulin Ratio 0.6L, Procalcitonin 0.17 03/08/20 13:34: POC pH (Misc Panel) 7.509H, POC Base Excess (Misc Panel) 11.0H, POC Saturated Percent O2 (Misc) 94L, POC pO2 (Misc Panel) 65.0L, POC pCO2 (Misc Panel) 43.0, P OC HCO3 (Misc Panel) 34.2H, POC Total CO2 (Misc Panel) 35.0H 03/08/20 20:10: Blood Gas Bicarbonate Standard 32.0H, Arterial Blood pH 7.467H, Arterial Blood Partial Pressure CO2 47.0H, Arterial Blood Partial Pressure O2 58.3L, Arterial Blood Total CO2 34.7H, Arterial Blood HCO3 33.2H, Arterial Blood Base Excess 8.3H, Arterial Blood Oxygen Saturation 92.0L 03/08/20 20:44: Bedside Glucose (Misc Panel) 210H CBC/BMP Laboratory Tests 03/08/20 13:17 Microbiology Microbiology 03/08/20 Blood Culture, Received Pending 03/08/20 Blood Culture, Received Pending SABIHA EVANS MD Mar 09, 2020 11:59
[2020-03-09] MEDS ORDERED: ESCITALOPRAM OXALATE 10 MG TAB (LEXAPRO) PO SCH (12:00)
[2020-03-09] MEDS ORDERED: SODIUM CHLORIDE 0.9% INJ 10 ML SYR IV SCH (20:30)
== END 2020-03-09 08:08 | disposition expired | DRG 871 ==
LOC: M ED 12:41 → M ED INP 14:54 → ENRESERV 16:48 → M 4MAIN 18:34
PROVIDERS: ADMIT Family Medicine; ATTEND Family Medicine
PROC: XW033E5 Introduction of Remdesivir Anti-infective into Peripheral Vein, Percutaneous Approach, New Technology Group 5 (ICD-10-PCS; principal; 2020-03-08)
PROC: 3E0333Z Introduction of Anti-inflammatory into Peripheral Vein, Percutaneous Approach (ICD-10-PCS; 2020-03-08)
DX: A41.89 Other specified sepsis (principal); J96.01 Acute respiratory failure with hypoxia; J12.89 Other viral pneumonia; U07.1 COVID-19; I48.20 Chronic atrial fibrillation, unspecified; J44.0 Chronic obstructive pulmonary disease with (acute) lower respiratory infection; I10 Essential (primary) hypertension; F41.9 Anxiety disorder, unspecified; F32.9 Major depressive disorder, single episode, unspecified; Z51.5 Encounter for palliative care; Z66 Do not resuscitate; Z99.81 Dependence on supplemental oxygen; Z96.641 Presence of right artificial hip joint; Z86.73 Personal history of transient ischemic attack (TIA), and cerebral infarction without residual deficits; E11.9 Type 2 diabetes mellitus without complications; E86.0 Dehydration; Z79.52 Long term (current) use of systemic steroids; Z79.899 Other long term (current) drug therapy; Z79.01 Long term (current) use of anticoagulants; Z88.0 Allergy status to penicillin; Z88.2 Allergy status to sulfonamides; Z91.040 Latex allergy status

== ENCOUNTER → 2020-03-08 | Outpatient (REF) | payer MEDICARE, OTHER, MEDICAID ==
[2020-03-08 12:57] LABS: MAGNESIUM LEVEL 0.7 MG/DL (1.8-2.4); POTASSIUM SERUM 4.8 MEQ/L (3.5-5.1)
== END ==
PROVIDERS: ATTEND Internal Medicine
DX: E87.6 Hypokalemia (principal)